=== PATIENT | male | born 1940 | race Caucasian/White ===

== ENCOUNTER 2018-04-15 11:18 | Inpatient (IN) ==
[2018-04-15 12:12] LABS: Hematocrit (blood only) 41.3 % (42-52); Hemoglobin 14.8 g/dL (14.0-18.0); Mean Corpuscular Hgb Conc 35.8 g/dL (32-36); Mean Corpuscular Volume 100.2 fL (80-100); Mean Platelet Volume 8.6 fL (7.4-10.4); Platelet Count 358 K/uL (130-400); RDW Coefficient of Variation 11.9 % (11.5-14.5); RDW Standard Deviation 43.4 fL (36.4-46.3); Red Blood Count 4.12 M/uL (4.7-6.1); White Blood Count 9.43 K/uL (4.8-10.8)
[2018-04-15 12:19] LABS: Appearance Urine Clear (Clear); Bilirubin Urine Negative (Negative); Color Urine Yellow; Glucose Urine UA Negative (Negative); Ketones Urine Negative (Negative); Leukocyte Esterase Urine Negative (Negative); Nitrite Urine Negative (Negative); Protein Urine Negative (Negative); Specific Gravity Urine 1.007 (1.000-1.030); Urobilinogen Urine Negative (Negative); pH Urine 5.5 (4.5-7.5)
--- NOTE | 2018-04-15 12:26 | CT Scan Report ---
CT head/brain wo con CLINICAL HISTORY: 77 years-old Male with weakness. Acute weakness TECHNIQUE: Multiple axial CT images of the head were obtained without contrast. A dose lowering tech nique was utilized adhering to the principles of ALARA. CT DOSE: 601.98 mGy.cm COMPARISON: None. FINDINGS: No acute intracranial hemorrhage, midline shift, intracranial mass, hydrocephalus, territorial ischem ia or abnormal extra-axial collection. Moderate atrophy. Cerebral vascular calcifications are noted. Minimal hypodensities about the white matter are suggestive of chronic microvascular ischemic changes . The calvarium is intact. The paranasal sinuses, mastoid air cells, and middle ear cavities are clear . IMPRESSION: No acute intracranial abnormality. The above report was generated using voice recognition software. It may contain grammatical, syntax o r spelling errors. Electronically signed by: Sergo Payan M.D. 04/15/2018 12:24 PM
[2018-04-15 12:32] LABS: Alanine Aminotransferase 12 U/L (12-78); Albumin Level 2.5 gm/dl (3.4-5.0); Aspartate Aminotransferase 11 U/L (15-37); BUN Creatinine Ratio 7.3 (10-20); Blood Urea Nitrogen 8 mg/dl (7-18); Calcium 8.4 mg/dl (8.5-10.1); Carbon Dioxide 29 mmol/L (21-32); Chloride 89 mmol/L (98-107); Creatinine Clr Calc Pharmacy 55.1 ml/min; Est GFR (Non-African American) 68.1; Glucose 107 mg/dl (70-99); Magnesium 1.4 mg/dl (1.8-2.4); Potassium 3.1 mmol/L (3.5-5.1); Sodium 126 mmol/L (136-145)
--- NOTE | 2018-04-15 12:33 | XRay Report ---
XR chest 1V portable HISTORY: 77 years-old Male weakness acute weakness COMPARISON: None available TECHNIQUE: Portable AP view of the chest FINDINGS: Cardiac silhouette is mildly enlarged. Linear subsegmental left basilar opacities suggest atelectasis /scarring. No pneumothorax, large pleural effusion or overt pulmonary edema. Remote appearing bilateral rib fractures. Degenerative changes of the shoulders and spine. IMPRESSION: 1. Cardiomegaly without acute process. 2. Subsegmental left basilar atelectasis/scarring. The above report was generated using voice recognition software. It may contain grammatical, syntax o r spelling errors. Electronically signed by: Sergo Payan M.D. 04/15/2018 12:32 PM
[2018-04-15 12:39] LABS: Basophils # (auto) 0.03 K/uL (0-0.2); Basophils % (auto) 0.3 %; Eosinophils # (auto) 0.04 K/uL (0-0.5); Eosinophils % (auto) 0.4 %; Immature Granulocytes # (auto) 0.43 K/uL (0.00-0.02); Immature Granulocytes % (auto) 4.6 %; Lymphocytes # (auto) 1.48 K/uL (1.2-3.4); Lymphocytes % (auto) 15.7 %; Monocytes # (auto) 1.53 K/uL (0.11-0.59); Monocytes % (auto) 16.2 %; Neutrophils # (auto) 5.92 K/uL (1.4-6.5); Neutrophils % (auto) 62.8 %
[2018-04-15 12:42] LABS: Albumin Globulin Ratio 0.5 (0.9-2); Alkaline Phosphatase 55 U/L (45-117); Total Protein 7.5 gm/dl (6.4-8.2); Troponin I < 0.015 ng/ml (0-0.045)
[2018-04-15] MEDS ORDERED: POTASSIUM CHLORIDE / WTR 10 MEQ/100 ML PLCT IV ONE (13:19)
[2018-04-15] MEDS ORDERED: SODIUM CHLORIDE 0.9% 1000ML 1,000 ML IV STA (13:19)
--- NOTE | 2018-04-15 14:10 | CT Scan Report ---
ABDOMEN AND PELVIS CT WITHOUT CONTRAST CT DOSE: 348.43 mGy.cm HISTORY: Acute left lower quadrant abdominal pain and tenderness LLQ tenderness, hyponatremia TECHNIQUE: Multiaxial CT images of the abdomen and pelvis were performed without contrast. A dose lo wering technique was utilized adhering to the principles of ALARA. COMPARISON STUDY: None. FINDINGS: Calcified granulomata about the lung bases. Mild subsegmental bibasilar atelectasis/scarring. No pneu matosis or pneumoperitoneum. Imaged inferior cardiac chambers are mildly enlarged. Papillary muscle c alcifications noted about the left ventricle. Layering cholelithiasis noted without CT evidence of acute cholecystitis. Mild gallbladder contractio n. Liver is unremarkable. No focal hepatic mass lesion or intrahepatic biliary ductal dilation. Splee n is unremarkable. Mild generalized pancreatic atrophy. Adrenal glands are unremarkable. Right kidney and ureter are within normal limits. Mild perinephric stranding about the left kidney. 3 .5 cm cyst about the interpolar left kidney demonstrates minimal calcification along its medial porti on. No left-sided renal calculi or hydronephrosis. Mild wall thickening of the bladder. The prostate is upper limits of normal in size. Small fat filled left inguinal hernia. The aorta and IVC are unrem arkable. 1.2 cm fatty attenuating focus involving the proximal third portion of the duodenum suggests lipoma. No small bowel obstruction. There is circumferential wall thickening of the colon with perivesicular stranding extending from the ascending colon through the rectum, greatest about the sigmoid colon wit h trace fluid tracking along the paracolic gutters. Colonic diverticulosis without acute diverticulit is. Surgically absent appendix. Mildly prominent lymph nodes of the mid mesentery measure up to 8 mm, likely reactive. Tiny fat filled pain focal hernia. Degenerative changes noted about the pelvis, spine and hips. Mild convex left curvature of the lumbar spine. Remote appearing Schmorl's node involves the superior endp late L4. Age-indeterminate anterior endplate compression of the T12 and L1 without significant retrop ulsion. IMPRESSION: 1. Circumferential wall thickening of the colon extending from the ascending segment through the rect um with surrounding inflammatory stranding and trace pericolic gutter free fluid is compatible with a n acute nonspecific colitis. 2. No bowel obstruction. 3. Cholelithiasis without CT evidence of acute cholecystitis. 4. Age-indeterminate anterior endplate compression deformities at T12 and L1 without significant retr opulsion. 5. Additional findings as above. Electronically signed by: Sergo Payan M.D. 04/15/2018 2:08 PM
[2018-04-15] MEDS ORDERED: LORazepam 1 MG TAB PO PRN ×2 (15:21→16:57)
[2018-04-15] MEDS ORDERED: POTASSIUM CHLORIDE 20 MEQ TABCR PO ONE (15:30)
--- NOTE | 2018-04-15 15:42 | Emergency Department Note ---
Entered by Waleska Bello acting as a scribe for Alex Cazares MD ED Provider Note CHIEF COMPLAINT: Weakness HISTORY OF PRESENT ILLNESS: The patient is a 77 year old male who presents to the Emergency Room with complaints of constant weakness that started 2 weeks ago. The patient reports he went for a checkup and asked for something for energy. He states he was given vitamin D and then got his blood work done again. The patient states he occasionally has pain in the back of his neck. He reports he has had lower back issues for a while that radiate to his hips. The patient notes he has loss of appetite. He notes his balance if off and has been walking a lot slower. The patient reports he is weak all over. Per significant other: the patient has been confused lately where he forgot to take the trash out last week. The patient states there is changes in his bowel movements where it its mushy and not firm at all. He reports he has history of appendectomy and hypertension. He states he is on blood pressure medicine. The patient reports he had a cataract surgery done for one eye. Pt denies LOC, headache, fevers, chills, diaphoresis, visual changes, chest pain , breathing difficulties, nausea, vomiting, abdominal pain, back pain, melena, hematochezia, urinary symptoms, numbness, lymphadenopathy, rash, or other complaints. REVIEW OF SYSTEMS: See HPI for pertinent positives and negatives. A total of ten systems were reviewed and were otherwise negative. PMHx/PSHx: Rheumatic fever Hypertension BCC in situ of skin Tonsillectomy SOCIAL HISTORY: Patient lives at home. PHYSICAL EXAM: GENERAL: Awake, alert, tired-appearing, in no distress HENT: Normocephalic, atraumatic. Oropharynx unremarkable. EYES: Normal conjunctiva. Sclera non-icteric. NECK: Inspection normal. Non-tender. Supple. No nuchal rigidity. FROM. No masses. RESPIRATORY: Clear to auscultation. No wheezes. No rales. Normal respiratory effort. CARDIAC: Normal rate. Normal rhythm. No murmurs. No rubs. Extremities warm and well perfused. Pulses equal. No JVD. GI: Soft, non-distended. Left lower quadrant tenderness to palpation. No rebound or guarding. No masses. RECTAL: Deferred. MUSCULOSKELETAL: Atraumatic. Chest examination reveals no tenderness. The back is symmetrical on inspection without obvious abnormality. There is no CVA tenderness to palpation. No joint edema. LOWER EXTREMITIES: Calves are equal size bilaterally and non-tender. No edema. No discoloration. NEURO: Normal sensorium. No sensory or motor deficits noted. SKIN: No rash or jaundice noted. EMERGENCY DEPARTMENT COURSE: 1137: Past medical records reviewed. The patient was evaluated in room B2, and a complete history and physical examination were performed. 1322: I reevaluated the patient and updated his on test results. I discussed the treatment plan with him. The patient verbally agreed and understood. 1325: I reviewed the patient's case with Carlos Cates. She will admit the patient. MEDICAL DECISION MAKING: Prior records/ancillary studies reviewed and summarized above. Nursing notes reviewed and agree them. Additional history obtained from family. The patient's history was concerning for generalized weakness and poor appetite. Differential diagnosis: Etiologies such as infection, hypoglycemia, electrolyte abnormalities, cardiac sources, intracerebral event, toxicologic, neurologic, as well as others were entertained. Physical examination: As above. Mild lower quadrant tenderness. On the left per ER treatment provided: IV Lock Normal saline hydration IV potassium On reassessment the patient felt better. Diagnostics interpretation by me: ECG: Negative for ischemia. Left bundle branch block with premature contractions noted. Repeat unchanged. The labs revealed an unremarkable CBC. Chemistry panel revealed significant hyponatremia as well as hypokalemia. Urinalysis unremarkable. Troponin negative. Imaging studies: Head CT was negative. Chest x-ray negative. CT scan of the abdomen pelvis revealed a colitis. Endplate compression fracture is noted of T12 and L1. Patient and family were informed. Consultation: A consultation was placed with the hospitalist. The case was discussed and diagnostics were reviewed. The patient was evaluated in the ER for further treatment. IMPRESSION: Hyponatremia Hypokalemia Weakness Colitis Compression Fracture of T12 and L1 PLAN: Admitted. The scribe's documentation has been prepared under my direction and personally reviewed by me in its entirety. I confirm that the note above accurately reflects all work, treatment, procedures, and medical decision making performed by me. Impression & Plan Hyponatremia, Hypokalemia, Weakness, Colitis, Compression fracture of T12 vertebra, Compression fracture of L1 vertebra Past Med/Surg History Medical History Basal cell carcinoma (BCC) in situ of skin Hypertension Rheumatic fever HX OF WITH MURMUR; NO SPEED BELT SANDER TENDER Surgical History H/O Moh's micrographic surgery for skin cancer X2 History of appendectomy History of colonoscopy History of tonsillectomy and adenoidectomy History of tooth extraction WISDOM TOOTH Family History Other Family history non-contributory Social History Current Living Situation: Spouse Other Information That Helps Us Care for You: No Feels Safe at Home: Yes Safety Concerns: Feels Safe At This Time Smoking Status: Never smoker Do You Dip or Chew Tobacco: No Second Hand Exposure: No Tobacco Cessation Education Requested by Patient: No Hx Alcohol Use: Yes Alcohol type: beer Alcohol Intake Frequency: 3 or more drinks per day Hx Substance Use: No Beliefs That Will Affect Care: None Preferred Language: Croatian Communication Ability: Effective Quality Assurance Inspector Required: No Results & Data Vital Signs Vital Signs - 24 hr 04/15/18 11:20 04/15/18 11:33 04/15/18 12:04 Temperature 36.7 C Temperature Source Oral Sepsis Recent Fever Within 48 Hours No Sepsis New/Unexplained Change in Mental Status No Sepsis Action Taken by Nursing No Action Required Pulse Rate - Lying 87 Pulse Rate - Sitting 95 H Pulse Rate - Standing 111 H Pulse Rate 87 Pulse Rate [Right Finger] Respiratory Rate 16 Respiratory Effort / Characteristics Respiratory Depth Respiratory Pattern Blood Pressure - Lying 116/77 Blood Pressure - Sitting 98/64 L Blood Pressure- Standing 97/61 L Blood Pressure 101/63 Blood Pressure [Left Arm] Blood Pressure Mean 75 Blood Pressure Mean [Left Arm] Blood Pressure Position [Left Arm] Pulse Oximetry 96 94 Oxygen Delivery Method Room Air Room Air 04/15/18 12:26 04/15/18 13:56 04/15/18 14:24 Temperature Temperature Source Sepsis Recent Fever Within 48 Hours Sepsis New/Unexplained Change in Mental Status Sepsis Action Taken by Nursing Pulse Rate - Lying Pulse Rate - Sitting Pulse Rate - Standing Pulse Rate 99 H Pulse Rate [Right Finger] 110 H 101 H Respiratory Rate 16 20 20 Respiratory Effort / Characteristics Non-Labored Spontaneous Respiratory Depth Normal Respiratory Pattern Regular Blood Pressure - Lying Blood Pressure - Sitting Blood Pressure- Standing Blood Pressure 117/54 L Blood Pressure [Left Arm] 113/63 110/74 Blood Pressure Mean Blood Pressure Mean [Left Arm] 79 86 Blood Pressure Position [Left Arm] Sitting Pulse Oximetry 94 98 98 Oxygen Delivery Method Room Air Room Air Room Air 04/15/18 15:04 Temperature 37.3 C Temperature Source Oral Sepsis Recent Fever Within 48 Hours Sepsis New/Unexplained Change in Mental Status Sepsis Action Taken by Nursing Pulse Rate - Lying Pulse Rate - Sitting Pulse Rate - Standing Pulse Rate Pulse Rate [Right Finger] 92 H Respiratory Rate Respiratory Effort / Characteristics Respiratory Depth Respiratory Pattern Blood Pressure - Lying Blood Pressure - Sitting Blood Pressure- Standing Blood Pressure Blood Pressure [Left Arm] 133/76 Blood Pressure Mean Blood Pressure Mean [Left Arm] 95 Blood Pressure Position [Left Arm] Pulse Oximetry 98 Oxygen Delivery Method Home Medications Current Medication List: was personally reviewed by me Laboratory Data Attestation: I reviewed the patient's lab results. Result diagrams: 04/15/18 11:59 04/15/18 11:59 Lab Results 04/15/18 04/15/18 04/15/18 Range/Units 11:59 11:59 11:59 WBC 9.43 (4.8-10.8) K/uL RBC 4.12 L (4.7-6.1) M/uL Hgb 14.8 (14.0-18.0) g/dL Hct 41.3 L (42-52) % MCV 100.2 H (80-100) fL MCH 35.9 H (25-34) pg MCHC 35.8 (32-36) g/dL RDW Std Deviation 43.4 (36.4-46.3) fL RDW Coeff of Cheryl 11.9 (11.5-14.5) % Plt Count 358 (130-400) K/uL MPV 8.6 (7.4-10.4) fL Immature Gran % (Auto) 4.6 % Neut % (Auto) 62.8 % Lymph % (Auto) 15.7 % Wilkin % (Auto) 16.2 % Eos % (Auto) 0.4 % Baso % (Auto) 0.3 % Immature Gran # (Auto) 0.43 H (0.00-0.02) K/uL Neut # (Auto) 5.92 (1.4-6.5) K/uL Lymph # (Auto) 1.48 (1.2-3.4) K/uL Wilkin # (Auto) 1.53 H (0.11-0.59) K/uL Eos # (Auto) 0.04 (0-0.5) K/uL Baso # (Auto) 0.03 (0-0.2) K/uL Sodium 126 L (136-145) mmol/L Potassium 3.1 L (3.5-5.1) mmol/L Chloride 89 L (98-107) mmol/L Carbon Dioxide 29 (21-32) mmol/L Anion Gap 8.0 (3-11) BUN 8 (7-18) mg/dl Creatinine 1.05 (0.6-1.4) mg/dl Est Cr Clr Drug Dosing 55.1 ml/min Est GFR ( Amer) 79.0 Est GFR (Non-Af Amer) 68.1 BUN/Creatinine Ratio 7.3 L (10-20) Glucose 107 H (70-99) mg/dl Osmolality 261 L (280-300) mOsm/kg Calcium 8.4 L (8.5-10.1) mg/dl Magnesium 1.4 L (1.8-2.4) mg/dl Total Bilirubin 1.0 (0.1-1) mg/dl AST 11 L (15-37) U/L ALT 12 (12-78) U/L Alkaline Phosphatase 55 (45-117) U/L Troponin I < 0.015 (0-0.045) ng/ml Total Protein 7.5 (6.4-8.2) gm/dl Albumin 2.5 L (3.4-5.0) gm/dl Globulin 5.0 H (2.5-4.0) gm/dl Albumin/Globulin Ratio 0.5 L (0.9-2) TSH 2.060 (0.300-4.500) uIu/ml Urine Color Urine Appearance (Clear) Urine pH (4.5-7.5) Ur Specific Anderson (1.000-1.030) Urine Protein (Negative) Urine Glucose (UA) (Negative) Urine Ketones (Negative) Urine Blood (Negative) Urine Nitrite (Negative) Urine Bilirubin (Negative) Urine Urobilinogen (Negative) Ur Leukocyte Esterase (Negative) Urine Osmolality (500-800) mOsm/kg Urine Sodium mmol/L Urine Potassium meq/L Urine Chloride mEq/L 04/15/18 04/15/18 04/15/18 Range/Units 12:10 12:10 12:10 WBC (4.8-10.8) K/uL RBC (4.7-6.1) M/uL Hgb (14.0-18.0) g/dL Hct (42-52) % MCV (80-100) fL MCH (25-34) pg MCHC (32-36) g/dL RDW Std Deviation (36.4-46.3) fL RDW Coeff of Cheryl (11.5-14.5) % Plt Count (130-400) K/uL MPV (7.4-10.4) fL Immature Gran % (Auto) % Neut % (Auto) % Lymph % (Auto) % Wilkin % (Auto) % Eos % (Auto) % Baso % (Auto) % Immature Gran # (Auto) (0.00-0.02) K/uL Neut # (Auto) (1.4-6.5) K/uL Lymph # (Auto) (1.2-3.4) K/uL Wilkin # (Auto) (0.11-0.59) K/uL Eos # (Auto) (0-0.5) K/uL Baso # (Auto) (0-0.2) K/uL Sodium (136-145) mmol/L Potassium (3.5-5.1) mmol/L Chloride (98-107) mmol/L Carbon Dioxide (21-32) mmol/L Anion Gap (3-11) BUN (7-18) mg/dl Creatinine (0.6-1.4) mg/dl Est Cr Clr Drug Dosing ml/min Est GFR ( Amer) Est GFR (Non-Af Amer) BUN/Creatinine Ratio (10-20) Glucose (70-99) mg/dl Osmolality (280-300) mOsm/kg Calcium (8.5-10.1) mg/dl Magnesium (1.8-2.4) mg/dl Total Bilirubin (0.1-1) mg/dl AST (15-37) U/L ALT (12-78) U/L Alkaline Phosphatase (45-117) U/L Troponin I (0-0.045) ng/ml Total Protein (6.4-8.2) gm/dl Albumin (3.4-5.0) gm/dl Globulin (2.5-4.0) gm/dl Albumin/Globulin Ratio (0.9-2) TSH (0.300-4.500) uIu/ml Urine Color Yellow Urine Appearance Clear (Clear) Urine pH 5.5 (4.5-7.5) Ur Specific Anderson 1.007 (1.000-1.030) Urine Protein Negative (Negative) Urine Glucose (UA) Negative (Negative) Urine Ketones Negative (Negative) Urine Blood Negative (Negative) Urine Nitrite Negative (Negative) Urine Bilirubin Negative (Negative) Urine Urobilinogen Negative (Negative) Ur Leukocyte Esterase Negative (Negative) Urine Osmolality 186 L (500-800) mOsm/kg Urine Sodium 25 mmol/L Urine Potassium 14.2 meq/L Urine Chloride 42 mEq/L Administered Medications Sodium Chloride (Nss 1000ml) 1,000 mls @ 125 mls/hr IV .Q8H STA Stop: 04/15/18 21:18 Last Admin: 04/15/18 13:30 Dose: 125 mls/hr Discontinued Medications Potassium Chloride (K [place] / Wtr) 10 meq in 100 mls @ 100 mls/hr IV ONE ONE Stop: 04/15/18 14:18 Last Admin: 04/15/18 13:30 Dose: 100 mls/hr Imaging Data Radiologist's Impression: Radiology results as stated below per my review and the radiologist's interpretation: CT head/brain wo con CLINICAL HISTORY: 77 years-old Male with weakness. Acute weakness TECHNIQUE: Multiple axial CT images of the head were obtained without contrast. A dose lowering technique was utilized adhering to the principles of ALARA. CT DOSE: 601.98 mGy.cm COMPARISON: None. FINDINGS: No acute intracranial hemorrhage, midline shift, intracranial mass, hydrocephalus, territorial ischemia or abnormal extra-axial collection. Moderate atrophy. Cerebral vascular calcifications are noted. Minimal hypodensities about the white matter are suggestive of chronic microvascular ischemic changes. The calvarium is intact. The paranasal sinuses, mastoid air cells, and middle ear cavities are clear. IMPRESSION: No acute intracranial abnormality. The above report was generated using voice recognition software. It may contain grammatical, syntax or spelling errors. Electronically signed by: Sergo Payan M.D. 04/15/2018 12:24 PM XR chest 1V portable HISTORY: 77 years-old Male weakness acute weakness COMPARISON: None available TECHNIQUE: Portable AP view of the chest FINDINGS: Cardiac silhouette is mildly enlarged. Linear subsegmental left basilar opacities suggest atelectasis/scarring. No pneumothorax, large pleural effusion or overt pulmonary edema. Remote appearing bilateral rib fractures. Degenerative changes of the shoulders and spine. IMPRESSION: 1. Cardiomegaly without acute process. 2. Subsegmental left basilar atelectasis/scarring. The above report was generated using voice recognition software. It may contain grammatical, syntax or spelling errors. Electronically signed by: Sergo Payan M.D. 04/15/2018 12:32 PM ECG Data Attestation: I personally reviewed and interpreted this ECG as follows: Indication: weakness Rate (beats per minute): 81 Rhythm: sinus rhythm ( with Premature supraventricular complexes) Findings: + LBBB and + left axis deviation; no PVC Comparison ECG Date: from (04/15/18 REPEAT) Change: no significant change (Sinus rhythm, 72 bpm, LBBB, premature supraventricular complexes) Blood Pressure Blood Pressure Findings: Normal blood pressure Blood Pressure Disposition: did not require urgent referral Discharge Plan Visit Data *Final* Discharge Date/Time: 04/15/18 14:24 Chief Complaint: Weakness Stated Complaint: WEAKNESS, DISORIENTED ED Provider: Alex Cazares Discharge Problem: Hyponatremia, Hypokalemia, Weakness, Colitis, Compression fracture of T12 vertebra, Compression fracture of L1 vertebra Patient Disposition: Admitted As Inpatient Discharge Instructions Interventions: ED Discharge Assessment Last Done: 04/15/18 14:24 The scribe's documentation has been prepared under my direction and personally reviewed by me in its entirety. I confirm that the note above accurately reflects all work, treatment, procedures, and medical decision making performed by me.
[2018-04-15 16:13] LABS: INR 1.2 (0.9-1.1); Partial Thromboplastin Ratio 1.1; Partial Thromboplastin Time 28.6 Seconds (21.0-31.0); Prothrombin Time 11.8 Seconds (9.0-12.0)
--- NOTE | 2018-04-15 16:23 | History & Physical Report ---
Date of Service April 15, 2018 Assessment & Plan (1) Hyponatremia: -Admit to [facility] with telemetry -Patient presenting from home with reports of 2 weeks of generalized weakness, lethargy, diarrhea -In the ED, CT ABD/pelvis showing a nonspecific colitis. Labs demonstrated Na+ 126 with associated hypokalemia and hypomagnesemia -Likely hypovolemic hyponatremia secondary to recent initiation of hydrochlorothiazide in combination with diarrhea and chronic alcohol use -IVF (NSS at 100ml/hr), serial BMPs to monitor for overcorrection of sodium (2) Colitis: -Noted on CT ABD/pelvis -will start p.o. Cipro -Stool for C. difficile and culture -Noted colonoscopy 08/2017-had polyps resected which were benign on biopsy (3) Hypokalemia: (4) Hypomagnesemia: -Likely secondary to GI loss with diarrhea -Replace, monitor electrolytes (5) Alcohol use: -Patient reports drinking 7 beers/day -No history of withdrawal in the past -Monitor patient closely for signs of withdrawal -Start multivitamin, folic acid, thiamine (6) Hypertension: -BP controlled -Holding HCTZ secondary to hyponatremia -Continue metoprolol, will hold lisinopril for now (7) DVT prophylaxis: -SQ Lovenox History of Present Illness Chief Complaint: Weakness Primary Care Provider: Chevy Bhatti MD 77-year-old male who presents to the ED with generalized weakness. Patient reports symptoms of been going on for the past 2 weeks. Patient reports he is typically very active however he has been sleeping up to 20 hours a day. He reports some intermittent lightheadedness and dizziness but denies any syncopal events. He reports a very poor appetite over the past couple of weeks as well however denies abdominal pain, nausea, vomiting. He reports diarrhea for the past 2 weeks as well. No bright red bleeding per rectum or dark tarry stools. He denies fevers and chills. No chest pain or shortness of breath. He denies any urinary symptoms. Of note, patient reports he was [facility] on [facility] ([facility] to determine [facility] medicine was hydrochlorothiazide 12.5 mg daily). In the ED, CT ABD/pelvis is showing an acute nonspecific colitis. Labs show Na+ 126, K+ 3.1, Mg +1.4. He was given IVF and 1 potassium rider. Allergies Allergy/AdvReac Type Severity Reaction Status Date / Time No Known Allergies Allergy Verified 04/15/18 12:31 Home Medications Home Medications Medication Instructions Recorded Confirmed Type cyanocobalamin (vitamin B-12) 1,000 mcg PO QAM 01/20/18 04/15/18 History [Vitamin B-12] metoprolol tartrate 25 mg PO BID 01/20/18 04/15/18 History saw palmetto 1,200 mg PO QAM 01/20/18 04/15/18 History vit C-vit [id number]-om-3 1 cap PO QAM 01/20/18 04/15/18 History [Ocuvite] cholecalciferol (vitamin D3) 1,000 unit PO QAM 04/15/18 04/15/18 History [Vitamin D3] hydrochlorothiazide 12.5 mg PO DAILY 04/15/18 04/15/18 History lisinopril 5 mg PO DAILY 04/15/18 04/15/18 History Past Med/Surg History Medical History Hypertension (Chronic) Basal cell carcinoma (BCC) in situ of skin (Inactive) Hypertension (Inactive) Rheumatic fever (Inactive) HX OF WITH MURMUR; 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 Surgical History S/P tonsillectomy and adenoidectomy (Chronic) History of appendectomy (Chronic) H/O Moh's micrographic surgery for skin cancer (Inactive) X2 History of appendectomy (Inactive) History of colonoscopy (Inactive) History of tonsillectomy and adenoidectomy (Inactive) History of tooth extraction (Inactive) WISDOM TOOTH Family History Other Family history non-contributory Social History Current Living Situation: Spouse Other Information That Helps Us Care for You: No Feels Safe at Home: Yes Safety Concerns: Feels Safe At This Time Smoking Status: Never smoker Do You Dip or Chew Tobacco: No Second Hand Exposure: No Tobacco Cessation Education Requested by Patient: No Hx Alcohol Use: Yes Alcohol type: beer Alcohol Intake Frequency: 3 or more drinks per day Alcohol Intake Frequency Comment: 7 beers/day Hx Substance Use: No Beliefs That Will Affect Care: None Preferred Language: Serbian Communication Ability: Effective Satin Finisher Required: No Review of Systems ROS per HPI, all other systems reviewed and negative Physical Exam 2 Vital Signs (Past 24 Hours): Last Vital Signs Temp 37.3 C 04/15/18 15:04 Pulse 92 H 04/15/18 15:04 Resp 20 04/15/18 14:24 BP 133/76 04/15/18 15:04 Pulse Ox 98 04/15/18 15:04 Constitutional: WD/WN, vitals as above Eyes: PERRL, conjunctivae normal, anicteric sclerae ENMT: external ear and nose normal, oropharynx normal Respiratory: normal respiratory effort, lungs clear to auscultation Cardiovascular: Rate/Rhythm: regular rate and regular rhythm Vessels: normal peripheral pulses Extremities: no edema Gastrointestinal (Abdomen): normal bowel sounds, soft, nontender, no hepatosplenomegaly Musculoskeletal: no cyanosis or clubbing, extremities motor strength 5/5 Skin: no rashes, warm and dry Neurologic: PERRL, EOMI, accommodation nl, no face palsy, no dysarthria Psychiatric: A+Ox3, euthymic affect Results & Data Laboratory Results Laboratory Last Values WBC 9.43 K/uL (4.8-10.8) 04/15/18 11:59 RBC 4.12 M/uL (4.7-6.1) L 04/15/18 11:59 Hgb 14.8 g/dL (14.0-18.0) 04/15/18 11:59 Hct 41.3 % (42-52) L 04/15/18 11:59 MCV 100.2 fL (80-100) H 04/15/18 11:59 MCH 35.9 pg (25-34) H 04/15/18 11:59 MCHC 35.8 g/dL (32-36) 04/15/18 11:59 RDW Std Deviation 43.4 fL (36.4-46.3) 04/15/18 11:59 RDW Coeff of Cheryl 11.9 % (11.5-14.5) 04/15/18 11:59 Plt Count 358 K/uL (130-400) 04/15/18 11:59 MPV 8.6 fL (7.4-10.4) 04/15/18 11:59 Immature Gran % (Auto) 4.6 % 04/15/18 11:59 Neut % (Auto) 62.8 % 04/15/18 11:59 Lymph % (Auto) 15.7 % 04/15/18 11:59 Colbert % (Auto) 16.2 % 04/15/18 11:59 Eos % (Auto) 0.4 % 04/15/18 11:59 Baso % (Auto) 0.3 % 04/15/18 11:59 Immature Gran # (Auto) 0.43 K/uL (0.00-0.02) H 04/15/18 11:59 Neut # (Auto) 5.92 K/uL (1.4-6.5) 04/15/18 11:59 Lymph # (Auto) 1.48 K/uL (1.2-3.4) 04/15/18 11:59 Colbert # (Auto) 1.53 K/uL (0.11-0.59) H 04/15/18 11:59 Eos # (Auto) 0.04 K/uL (0-0.5) 04/15/18 11:59 Baso # (Auto) 0.03 K/uL (0-0.2) 04/15/18 11:59 PT 11.8 Seconds (9.0-12.0) 04/15/18 11:59 INR 1.2 (0.9-1.1) H 04/15/18 11:59 APTT 28.6 Seconds (21.0-31.0) 04/15/18 11:59 PTT Ratio 1.1 04/15/18 11:59 Sodium 126 mmol/L (136-145) L 04/15/18 11:59 Potassium 3.1 mmol/L (3.5-5.1) L 04/15/18 11:59 Chloride 89 mmol/L (98-107) L 04/15/18 11:59 Carbon Dioxide 29 mmol/L (21-32) 04/15/18 11:59 Anion Gap 8.0 (3-11) 04/15/18 11:59 BUN 8 mg/dl (7-18) 04/15/18 11:59 Creatinine 1.05 mg/dl (0.6-1.4) 04/15/18 11:59 Est Cr Clr Drug Dosing 55.1 ml/min 04/15/18 11:59 Est GFR ( Amer) 79.0 04/15/18 11:59 Est GFR (Non-Af Amer) 68.1 04/15/18 11:59 BUN/Creatinine Ratio 7.3 (10-20) L 04/15/18 11:59 Glucose 107 mg/dl (70-99) H 04/15/18 11:59 Osmolality 261 mOsm/kg (280-300) L 04/15/18 11:59 Calcium 8.4 mg/dl (8.5-10.1) L 04/15/18 11:59 Magnesium 1.4 mg/dl (1.8-2.4) L 04/15/18 11:59 Total Bilirubin 1.0 mg/dl (0.1-1) 04/15/18 11:59 AST 11 U/L (15-37) L 04/15/18 11:59 ALT 12 U/L (12-78) 04/15/18 11:59 Alkaline Phosphatase 55 U/L (45-117) 04/15/18 11:59 Troponin I < 0.015 ng/ml (0-0.045) 04/15/18 11:59 Total Protein 7.5 gm/dl (6.4-8.2) 04/15/18 11:59 Albumin 2.5 gm/dl (3.4-5.0) L 04/15/18 11:59 Globulin 5.0 gm/dl (2.5-4.0) H 04/15/18 11:59 Albumin/Globulin Ratio 0.5 (0.9-2) L 04/15/18 11:59 TSH 2.060 uIu/ml (0.300-4.500) 04/15/18 11:59 Urine Color Yellow 04/15/18 12:10 Urine Appearance Clear (Clear) 04/15/18 12:10 Urine pH 5.5 (4.5-7.5) 04/15/18 12:10 Ur Specific Bailey 1.007 (1.000-1.030) 04/15/18 12:10 Urine Protein Negative (Negative) 04/15/18 12:10 Urine Glucose (UA) Negative (Negative) 04/15/18 12:10 Urine Ketones Negative (Negative) 04/15/18 12:10 Urine Blood Negative (Negative) 04/15/18 12:10 Urine Nitrite Negative (Negative) 04/15/18 12:10 Urine Bilirubin Negative (Negative) 04/15/18 12:10 Urine Urobilinogen Negative (Negative) 04/15/18 12:10 Ur Leukocyte Esterase Negative (Negative) 04/15/18 12:10 Urine Osmolality 186 mOsm/kg (500-800) L 04/15/18 12:10 Urine Sodium 25 mmol/L 04/15/18 12:10 Urine Potassium 14.2 meq/L 04/15/18 12:10 Urine Chloride 42 mEq/L 04/15/18 12:10 Diagnostic Findings CXR IMPRESSION: 1. Cardiomegaly without acute process. 2. Subsegmental left basilar atelectasis/scarring. HEAD CT IMPRESSION: No acute intracranial abnormality. CT ABD/PELVIS IMPRESSION: 1. Circumferential wall thickening of the colon extending from the ascending segment through the rectum with surrounding inflammatory stranding and trace pericolic gutter free fluid is compatible with an acute nonspecific colitis. 2. No bowel obstruction. 3. Cholelithiasis without CT evidence of acute cholecystitis. 4. Age-indeterminate anterior endplate compression deformities at T12 and L1 without significant retropulsion. 5. Additional findings as above. Code Status & VTE Plan VTE Prophylaxis Plan VTE Prophylaxis will be ordered: Yes Supervising Physician Co-Signing Physician Notes Attending Addendum: care coordinated with LETY Milian please refer to her notes for full details, I agree with her notes patient seen and examined, records reviewed by myself as well on exam, patient resting in bed, watching TV, comfortable States he just has no energy Noted loose bowel movement medical floor, watery, nonbloody Has some occasional cramping in the lower quadrants Denies chest pain, palpitations, dizziness, shortness of breath, headache Last drink was yesterday Reports drinking 6 beers a day Denies tremors, anxiety, sweats, hallucinations no other symptoms VS noted and reviewed oriented x3, not in distress, speaks in sentences with no effort nor accessory muscle use normal rate, regular rhythm, no murmurs clear breath sounds bilaterally non distended, soft, nontender no bipedal edema, erythema, warmth no neuro deficits WBC 9.4 Hg [address] abdomen and pelvis: Acute colitis ASSESSMENT AND PLAN Hyponatremia, hypervolemic From diarrhea of 2 weeks, concomitant use of HCTZ, poor oral intake --IV NSS Check sodium at 6 p.m. --Start Cipro for diarrhea HCTZ Alcoholism Alcohol withdrawal protocol -including gabapentin Monitor in telemetry other diagnoses and plan of care as per LETY Milian's notes Inocente Prater MD
[2018-04-15] MEDS: MAGNESIUM SULFATE / D5W 1 GM/100 ML BAG IV SCH ×2 (16:41→18:04)
[2018-04-15] MEDS: CIPROFLOXACIN 500 MG TAB PO SCH ×2 (16:42→21:01)
[2018-04-15] MEDS: FOLIC ACID 1 MG TAB PO SCH (16:42)
[2018-04-15] MEDS: MULTIVITAMIN TAB PO SCH (16:43)
[2018-04-15] MEDS: THIAMINE HCL 100 MG TAB PO SCH (16:44)
[2018-04-15] MEDS: SODIUM CHLORIDE 0.9% 1000ML 1,000 ML IV SCH (16:46)
[2018-04-15] MEDS ORDERED: GABAPENTIN 1200MG ALCOHOL WITHDRAWAL LOAD PO STA (16:57)
[2018-04-15] MEDS ORDERED: GABAPENTIN 600 MG TAB PO SCH (18:00)
[2018-04-15] MEDS ORDERED: Heparin IV Low Dose *NO* Bolus ONE (18:18)
[2018-04-15] MEDS ORDERED: METOPROLOL TARTRATE 1 MG/ML VIAL IV PRN (18:21)
[2018-04-15] MEDS: METOPROLOL TARTRATE 25 MG TAB PO SCH (18:21)
[2018-04-15 18:27] LABS: BUN Creatinine Ratio 8.7 (10-20); Calcium 7.9 mg/dl (8.5-10.1); Creatinine Clr Calc Pharmacy 57.8 ml/min; Est GFR (African American) 83.8; Est GFR (Non-African American) 72.3; Potassium 2.9 mmol/L (3.5-5.1)
[2018-04-15] MEDS ORDERED: POTASSIUM CHLORIDE 20 MEQ TABCR PO STA (18:29)
[2018-04-15] MEDS: HEPARIN LOW DOSE DEXTROSE 25,000 UNITS/500 ML IV SCH (19:19)
[2018-04-15] MEDS: POTASSIUM CHLORIDE / WTR 10 MEQ/100 ML PLCT IV SCH ×2 (19:21→21:01)
[2018-04-15] MEDS ORDERED: ENOXAPARIN INJ 40 MG/0.4 ML SYR SQ SCH (21:00)
[2018-04-16] MEDS: GABAPENTIN 600 MG TAB PO SCH ×4 (00:08→20:20)
[2018-04-16 00:41] LABS: BUN Creatinine Ratio 8.2 (10-20); Creatinine Clr Calc Pharmacy 57.3 ml/min; Est GFR (African American) 82.8; Est GFR (Non-African American) 71.4; Magnesium 1.8 mg/dl (1.8-2.4); Potassium 3.4 mmol/L (3.5-5.1)
[2018-04-16 01:51] LABS: Partial Thromboplastin Ratio 1.6; Partial Thromboplastin Time 41.7 Seconds (21.0-31.0)
[2018-04-16] MEDS ORDERED: HEPARIN IV BOLUS 3,000 UNITS in SYRINGE 0 ML IV ONE (02:30)
[2018-04-16] MEDS ORDERED: POTASSIUM CHLORIDE 20 MEQ TABCR PO STA (04:09)
[2018-04-16] MEDS: SODIUM CHLORIDE 0.9% 1000ML 1,000 ML IV SCH ×2 (05:44→16:13)
[2018-04-16 08:39] LABS: Hematocrit (blood only) 39.3 % (42-52); Hemoglobin 13.8 g/dL (14.0-18.0); Mean Corpuscular Hgb Conc 35.1 g/dL (32-36); Mean Platelet Volume 8.4 fL (7.4-10.4); Platelet Count 362 K/uL (130-400); RDW Coefficient of Variation 11.9 % (11.5-14.5); RDW Standard Deviation 43.8 fL (36.4-46.3); Red Blood Count 3.89 M/uL (4.7-6.1); White Blood Count 10.04 K/uL (4.8-10.8)
[2018-04-16] MEDS ORDERED: SILVER SULFADIAZINE 1% CR 50 GM JAR EXT ONE (08:42)
[2018-04-16 08:54] LABS: Partial Thromboplastin Ratio 1.5
[2018-04-16 09:09] LABS: Calcium 7.7 mg/dl (8.5-10.1); Est GFR (African American) 85.8; Est GFR (Non-African American) 74.1; Magnesium 1.8 mg/dl (1.8-2.4); Potassium 3.2 mmol/L (3.5-5.1)
--- NOTE | 2018-04-16 09:47 | Cardiology Consultation ---
Date of Consultation April 16, 2018 Assessment & Plan (1) Paroxysmal atrial fibrillation: Patient presents with fatigue, lethargy and asymptomatic paroxysmal atrial fibrillation. Patient unaware of any palpitations or cardiac symptoms at this time. Duration of atrial fibrillation unknown, however, I suspect related to volume depletion, electrolyte derangement, and chronic alcohol consumption. Mild left atrial enlargement with otherwise no significant structural heart disease per resting 2D transthoracic echocardiogram. I have ordered Hemoccult stool. Serum hemoglobin within normal limits without history of GI blood loss. Continue intravenous heparin at this time. Continue metoprolol 25 mg twice daily. I will not titrate at this time due to borderline hypotension. (2) LBBB (left bundle branch block): Monitor telemetry. Preserved LV systolic function. Outpatient ischemic evaluation. (3) Colitis: Consider gastroenterology consultation. (4) Alcohol use: (5) Hypokalemia: Replace as indicated. (6) Hyponatremia: Continue intravenous hydration with normal saline. Repeat basic metabolic panel daily. (7) Hypertension: Borderline resting hypotension on admission. Continue beta-mulugeta as tolerated. History of Present Illness Reason for Consultation: Paroxysmal atrial fibrillation Requesting Physician: Inocente Prater MD Attending Physician: Inocente Prater MD History of Present Illness 77-year-old patient admitted with weakness and fatigue. Reports loose stools which were yellow colored for several days. Notes poor p.o. intake. Patient found to be atrial fibrillation with intermittent rapid ventricular response. Carries history of hypertension. Denies personal history of coronary disease, congestive heart failure, diabetes, cerebrovascular accident, rheumatic fever as a child, or peripheral vascular disease. Denies any black or tarry stools. No nausea, vomiting, or hematemesis. Currently resting comfortably. Treated with intravenous beta-mulugeta and heparin overnight. Electrolyte derangement including hyponatremia and hypo-kalemia noted on admission. Resting 2D transthoracic echocardiogram demonstrates normal LV systolic function with abnormal septal motion consistent with left bundle branch block. No significant valvular pathology. Patient admits to moderate daily alcohol intake , consuming 3 or more alcoholic beverages daily. Allergies Allergy/AdvReac Type Severity Reaction Status Date / Time No Known Allergies Allergy Verified 04/15/18 12:31 Home Medications Home Medications Medication Instructions Recorded Confirmed Type cyanocobalamin (vitamin B-12) 1,000 mcg PO QAM 01/20/18 04/15/18 History [Vitamin B-12] metoprolol tartrate 25 mg PO BID 01/20/18 04/15/18 History saw palmetto 1,200 mg PO QAM 01/20/18 04/15/18 History vit C-vit [id number]-sbg-om-3 1 cap PO QAM 01/20/18 04/15/18 History [Ocuvite] cholecalciferol (vitamin D3) 1,000 unit PO QAM 04/15/18 04/15/18 History [Vitamin D3] hydrochlorothiazide 12.5 mg PO DAILY 04/15/18 04/15/18 History lisinopril 5 mg PO DAILY 04/15/18 04/15/18 History Patient History Medical History Hypertension (Chronic) A-fib Anemia Basal cell carcinoma (BCC) in situ of skin (Inactive) Hypertension (Inactive) Rheumatic fever (Inactive) HX OF WITH MURMUR; 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 Surgical History S/P tonsillectomy and adenoidectomy (Chronic) History of appendectomy (Chronic) H/O Moh's micrographic surgery for skin cancer (Inactive) X2 History of appendectomy (Inactive) History of colonoscopy (Inactive) History of tonsillectomy and adenoidectomy (Inactive) History of tooth extraction (Inactive) WISDOM TOOTH Family History Other Family history non-contributory Social History marital status: Current Living Situation: Spouse Other Information That Helps Us Care for You: No Feels Safe at Home: Yes Safety Concerns: Feels Safe At This Time Smoking Status: Never smoker Do You Dip or Chew Tobacco: No Hx Alcohol Use: Yes Alcohol type: beer Alcohol Intake Frequency: 3 or more drinks per day Alcohol Intake Frequency Comment: 7 beers/day Hx Substance Use: No Beliefs That Will Affect Care: None Communication Ability: Effective Review of Systems Pertinent positives noted per HPI, comprehensive 10 system review is otherwise negative. Physical Exam 2 Vital Signs (Past 24 Hours): Last Vital Signs Temp 36.8 C 04/16/18 07:41 Pulse 74 04/16/18 07:41 Resp 16 04/16/18 07:41 BP 96/60 L 04/16/18 07:41 Pulse Ox 95 04/16/18 07:41 Physical Exam: General: NAD, AAO x3, well nourished. HEENT: Normocephalic. Atraumatic. Conjunctiva pink, no scleral icterus. Neck: No carotid bruits, the carotid upstrokes are brisk. No JVD. No HJR Heart: Regular normal S-1 and S-2 no S-3 or S-4 gallop. No murmurs or rub appreciated. PMI is not displaced. No RV heave. Lungs: Clear bilateral without rales , rhonchi, or wheeze. Abdomen: Mild distention, nontender, normal bowel sounds. No masses or organomegaly. No abdominal bruits. Extremities: No clubbing, cyanosis, or edema. Pulses: radial= 2/4, Dorsalis pedis =2/4, posterior tibial=2/4. Neuro: Cranial nerves grossly intact. No focal motor deficit.
[2018-04-16] MEDS: CIPROFLOXACIN 500 MG TAB PO SCH ×2 (09:58→20:19)
[2018-04-16] MEDS: THIAMINE HCL 100 MG TAB PO SCH (09:58)
[2018-04-16] MEDS: MULTIVITAMIN TAB PO SCH (09:58)
[2018-04-16] MEDS: CEROVITE ADV FORMULA TAB PO SCH (09:59)
[2018-04-16] MEDS: CYANOCOBALAMIN 500 MCG TABLET (VITAMIN B-12) PO SCH (09:59)
[2018-04-16] MEDS: FOLIC ACID 1 MG TAB PO SCH (10:00)
[2018-04-16] MEDS: METOPROLOL TARTRATE 25 MG TAB PO SCH ×2 (10:00→20:17)
[2018-04-16] MEDS: CHOLECALCIFEROL 1,000 UNITS TAB PO SCH (10:01)
[2018-04-16] MEDS ORDERED: Heparin IV Low Dose *NO* Bolus ONE (10:14)
[2018-04-16] MEDS ORDERED: HEPARIN IV BOLUS 4,500 UNITS in SYRINGE 0 ML IV ONE (10:30)
[2018-04-16] MEDS: POTASSIUM CHLORIDE 10 MEQ TABCR PO SCH (11:27)
--- NOTE | 2018-04-16 15:58 | Hospitalist Progress Note ---
Date of Service April 16, 2018 Assessment & Plan (1) Hyponatremia: -Admit to [facility] with telemetry -Patient presenting from home with reports of 2 weeks of generalized weakness, lethargy, diarrhea -In the ED, CT ABD/pelvis showing a nonspecific colitis. Labs demonstrated Na+ 126 with associated hypokalemia and hypomagnesemia -Likely hypovolemic hyponatremia secondary to recent initiation of hydrochlorothiazide in combination with diarrhea and chronic alcohol use -IVF (NSS at 100ml/hr), serial BMPs to monitor for overcorrection of sodium 04/16/2018 Sodium is slightly increased to 128 from 126 Continue NSS Check PRP at 6 PM tonight (2) Colitis: -Noted on CT ABD/pelvis -will start p.o. Cipro -Stool for C. difficile and culture -Noted colonoscopy 08/2017-had polyps resected which were benign on biopsy 04/16/2018 The area seems to be improving Stool cultures pending C. difficile negative Continue ciprofloxacin twice a day Start loperamide as needed for loose stools (3) Hypokalemia: (4) Hypomagnesemia: -Likely secondary to GI loss with diarrhea -Replace, monitor electrolytes 04/16/2018 K and mag improving Continue to monitor and replace (5) Alcohol use: -Patient reports drinking 7 beers/day -No history of withdrawal in the past -Monitor patient closely for signs of withdrawal -Start multivitamin, folic acid, thiamine 04/16/2018 No signs of withdrawal Continue alcohol withdrawal protocol including gabapentin taper protocol (6) Hypertension: -BP in the lower side Continue metoprolol but hold HCTZ and lisinopril to prevent hypotension (7) Paroxysmal atrial fibrillation: New onset Noted while on telemetry Echocardiogram: EF 55%, no valvular pathology, grade 1 diastolic dysfunction Cardiology consulted Continue metoprolol 25 mg twice daily Continue heparin drip (8) LBBB (left bundle branch block): Ischemic evaluation as an outpatient (9) DVT prophylaxis: -SQ Lovenox (10) Discharge planning issues: Anticipate discharge to home medically stable Subjective Seen resting in bed, comfortable, watching TV Follow-up for diarrhea, hyponatremia, atrial fibrillation States he feels improved today Resting well overnight Had 2 bowel movements overnight, nonbloody Denies abdominal pain, nausea No chest pain, shortness of breath, palpitations, dizziness No tremors, shakiness, anxiety, sweats, hallucinations No other symptoms Physical Exam 2 Vital Signs (Past 24 Hours): Last Vital Signs Temp 37.3 C 04/16/18 15:35 Pulse 77 04/16/18 15:35 Resp 16 04/16/18 15:35 BP 110/66 04/16/18 15:35 Pulse Ox 98 04/16/18 15:35 Physical Exam: General- oriented x 3, not in distress, speaks in sentences with no effort or accessory muscle use Eyes- anicteric Neck- no JVD Lungs- clear breath sounds bilaterally, no crackles, no wheezing Heart- normal rate, irregularly irregular rhythm; no murmurs Abdomen- normal bowel sounds, nondistended, soft, nontender Extremities- no pretibial edema, no calf tenderness Neuro- alert, oriented x 3; no gross focal neurologic deficits Skin- warm & dry Results & Data Laboratory Results Laboratory Results - last 24 hr 04/15/18 04/15/18 04/15/18 11:59 17:57 17:57 WBC RBC Hgb Hct MCV MCH MCHC RDW Std Deviation RDW Coeff of Cheryl Plt Count MPV PT 11.8 INR 1.2 H APTT 28.6 PTT Ratio 1.1 Sodium 125 L Potassium 2.9 L Chloride 90 L Carbon Dioxide 26 Anion Gap 9.0 BUN 9 Creatinine 1.00 Est Cr Clr Drug Dosing 57.8 Est GFR ( Amer) 83.8 Est GFR (Non-Af Amer) 72.3 BUN/Creatinine Ratio 8.7 L Glucose 156 H Calcium 7.9 L Magnesium Folate 12.68 Stl C. diff Tox B Gene 04/15/18 04/16/18 04/16/18 23:56 01:32 08:17 WBC 10.04 RBC 3.89 L Hgb 13.8 L Hct 39.3 L MCV 101.0 H MCH 35.5 H MCHC 35.1 RDW Std Deviation 43.8 RDW Coeff of Cheryl 11.9 Plt Count 362 MPV 8.4 PT INR APTT 41.7 H PTT Ratio 1.6 Sodium 128 L Potassium 3.4 L D Chloride 93 L Carbon Dioxide 27 Anion Gap 8.0 BUN 8 Creatinine 1.01 Est Cr Clr Drug Dosing 57.3 Est GFR ( Amer) 82.8 Est GFR (Non-Af Amer) 71.4 BUN/Creatinine Ratio 8.2 L Glucose 113 H Calcium 8.0 L Magnesium 1.8 Folate Stl C. diff Tox B Gene 04/16/18 04/16/18 04/16/18 08:17 08:17 08:55 WBC RBC Hgb Hct MCV MCH MCHC RDW Std Deviation RDW Coeff of Cheryl Plt Count MPV PT INR APTT 39.0 H PTT Ratio 1.5 Sodium 129 L Potassium 3.2 L Chloride 96 L Carbon Dioxide 25 Anion Gap 8.0 BUN 7 Creatinine 0.98 Est Cr Clr Drug Dosing 59.0 Est GFR ( Amer) 85.8 Est GFR (Non-Af Amer) 74.1 BUN/Creatinine Ratio 7.0 L Glucose 132 H Calcium 7.7 L Magnesium 1.8 Folate Stl C. diff Tox B Gene Neg C.diff Toxin B
[2018-04-16 17:44] LABS: BUN Creatinine Ratio 6.1 (10-20); Creatinine Clr Calc Pharmacy 63.6 ml/min; Est GFR (African American) 93.9; Partial Thromboplastin Ratio 2.8; Potassium 3.6 mmol/L (3.5-5.1)
[2018-04-16 17:58] LABS: Partial Thromboplastin Time 73.7 Seconds (21.0-31.0)
[2018-04-16] MEDS: LOPERAMIDE HCL 2 MG CAP PO PRN (18:09)
[2018-04-16] MEDS ORDERED: POTASSIUM CHLORIDE 10 MEQ TABCR PO ONE (19:00)
[2018-04-17] MEDS: HEPARIN LOW DOSE DEXTROSE 25,000 UNITS/500 ML IV SCH (00:50)
[2018-04-17 00:53] LABS: Partial Thromboplastin Ratio 2.5
[2018-04-17 00:54] LABS: Partial Thromboplastin Time 65.6 Seconds (21.0-31.0)
[2018-04-17] MEDS: SODIUM CHLORIDE 0.9% 1000ML 1,000 ML IV SCH ×2 (05:38→17:04)
[2018-04-17] MEDS: GABAPENTIN 600 MG TAB PO SCH ×2 (06:24→17:01)
[2018-04-17] MEDS: CIPROFLOXACIN 500 MG TAB PO SCH ×2 (08:59→19:31)
[2018-04-17] MEDS: CEROVITE ADV FORMULA TAB PO SCH (09:00)
[2018-04-17] MEDS: CHOLECALCIFEROL 1,000 UNITS TAB PO SCH (09:00)
[2018-04-17] MEDS: MULTIVITAMIN TAB PO SCH (09:00)
[2018-04-17] MEDS: THIAMINE HCL 100 MG TAB PO SCH (09:01)
[2018-04-17] MEDS: FOLIC ACID 1 MG TAB PO SCH (09:01)
[2018-04-17] MEDS: METOPROLOL TARTRATE 25 MG TAB PO SCH ×2 (09:02→19:31)
[2018-04-17] MEDS: CYANOCOBALAMIN 500 MCG TABLET (VITAMIN B-12) PO SCH (09:02)
[2018-04-17] MEDS: POTASSIUM CHLORIDE 10 MEQ TABCR PO SCH ×2 (09:03→10:05)
[2018-04-17 09:42] LABS: BUN Creatinine Ratio 3.7 (10-20); Calcium 8.1 mg/dl (8.5-10.1); Creatinine Clr Calc Pharmacy 58.4 ml/min; Est GFR (African American) 84.8; Est GFR (Non-African American) 73.2; Magnesium 1.6 mg/dl (1.8-2.4); Potassium 3.6 mmol/L (3.5-5.1)
--- NOTE | 2018-04-17 10:12 | Cardiology Progress Note ---
Date of Service April 17, 2018 Assessment & Plan (1) Paroxysmal atrial fibrillation: ECGs document sinus rhythm with frequent PACs, however, review of telemetry reveals bursts of atrial fibrillation with rapid ventricular response. Patient asymptomatic. Continue metoprolol tartrate 25 mg twice daily and intravenous heparin. Recommend Coumadin if no contraindications from a gastroenterologic perspective. Consider GI consultation regarding colitis. (2) LBBB (left bundle branch block): Monitor telemetry. Preserved LV systolic function. Outpatient ischemic evaluation. (3) Colitis: Consider gastroenterology consultation. (4) Alcohol use: (5) Hypokalemia: Replace as indicated. (6) Hyponatremia: Continue intravenous hydration with normal saline. Repeat basic metabolic panel daily. (7) Hypertension: Borderline resting hypotension on admission. Continue intravenous hydration. Continue beta-mulugeta as tolerated. Subjective Patient seen and examined at the bedside. Reports 2 episodes of diarrhea overnight where he soiled the bed. Denies chest pain or shortness of breath. Runs of paroxysmal atrial fibrillation as well as frequent PACs noted on telemetry. Patient denies palpitations. Review of Systems All systems reviewed & are unremarkable except as noted in HPI & below Physical Exam 2 Vital Signs (Past 24 Hours): Last Vital Signs Temp 36.7 C 04/17/18 07:18 Pulse 69 04/17/18 07:18 Resp 18 04/17/18 07:18 BP 111/61 04/17/18 07:18 Pulse Ox 97 04/17/18 07:18 Physical Exam: General: NAD, AAO x3, well nourished. HEENT: Normocephalic. Atraumatic. Conjunctiva pink, no scleral icterus. Neck: No carotid bruits, the carotid upstrokes are brisk. No JVD. No HJR Heart: Irregular rhythm, normal S-1 and S-2 no S-3 or S-4 gallop. No murmurs or rub appreciated. PMI is not displaced. No RV heave. Lungs: Clear bilateral without rales , rhonchi, or wheeze. Abdomen: Mild distention, nontender, normal bowel sounds. No masses or organomegaly. No abdominal bruits. Extremities: No clubbing, cyanosis, or edema. Pulses: radial=2/4, posterior tibial=2/4. Neuro: Cranial nerves grossly intact. No focal motor deficit.
[2018-04-17 10:44] LABS: Hematocrit (blood only) 35.9 % (42-52); Hemoglobin 12.4 g/dL (14.0-18.0); Mean Corpuscular Hgb Conc 34.5 g/dL (32-36); Mean Corpuscular Volume 103.5 fL (80-100); Mean Platelet Volume 8.5 fL (7.4-10.4); Platelet Count 327 K/uL (130-400); RDW Coefficient of Variation 12.2 % (11.5-14.5); RDW Standard Deviation 45.6 fL (36.4-46.3); Red Blood Count 3.47 M/uL (4.7-6.1); White Blood Count 8.12 K/uL (4.8-10.8)
[2018-04-17 11:07] LABS: Partial Thromboplastin Ratio 2.1
[2018-04-17 11:18] LABS: ALC (manual) 1.57 K/uL (1.2-3.4); Echinocytes 2+; Eosinophils # (manual) 0.15 K/uL (0-0.5); Lymphocytes # (manual) 1.57 K/uL (1.2-3.4); Lymphocytes % (manual) 19.3 %; Metamyelocytes # (manual) 0.28 K/uL (0-0); Metamyelocytes % (manual) 3.5 %; Monocytes # (manual) 0.78 K/uL (0.11-0.59); Monocytes % (manual) 9.6 %; Myelocytes # (manual) 0.43 K/uL (0-0); Myelocytes % (manual) 5.3 %; Neutrophils % (manual) 60.5 %
[2018-04-17 11:32] LABS: Partial Thromboplastin Time 53.6 Seconds (21.0-31.0)
[2018-04-17] MEDS: LOPERAMIDE HCL 2 MG CAP PO PRN (17:01)
[2018-04-17] MEDS ORDERED: MAGNESIUM SULFATE / D5W 1 GM/100 ML BAG IV ONE (18:30)
--- NOTE | 2018-04-17 21:32 | Hospitalist Progress Note ---
Date of Service April 17, 2018 Subjective Made aware by RN of positive Hemoccult test. Continue IV heparin if hemoglobin stable as per AM provider. Physical Exam 2 Vital Signs (Past 24 Hours): Last Vital Signs Temp 37.2 C 04/17/18 19:09 Pulse 82 04/17/18 19:09 Resp 18 04/17/18 19:09 BP 132/74 04/17/18 19:09 Pulse Ox 93 04/17/18 19:09
[2018-04-17 21:46] LABS: Basophils # (auto) 0.03 K/uL (0-0.2); Basophils % (auto) 0.3 %; Eosinophils % (auto) 3.5 %; Hematocrit (blood only) 36.2 % (42-52); Hemoglobin 12.5 g/dL (14.0-18.0); Immature Granulocytes # (auto) 0.34 K/uL (0.00-0.02); Lymphocytes # (auto) 1.93 K/uL (1.2-3.4); Lymphocytes % (auto) 22.4 %; Mean Corpuscular Hgb Conc 34.5 g/dL (32-36); Mean Corpuscular Volume 102.3 fL (80-100); Mean Platelet Volume 8.5 fL (7.4-10.4); Monocytes # (auto) 1.66 K/uL (0.11-0.59); Monocytes % (auto) 19.3 %; Neutrophils # (auto) 4.34 K/uL (1.4-6.5); Neutrophils % (auto) 50.5 %; Platelet Count 335 K/uL (130-400); RDW Coefficient of Variation 12.2 % (11.5-14.5); RDW Standard Deviation 45.7 fL (36.4-46.3); Red Blood Count 3.54 M/uL (4.7-6.1)
--- NOTE | 2018-04-18 03:43 | Hospitalist Progress Note ---
Date of Service April 18, 2018 Assessment & Plan (1) Hyponatremia: -Admit to [facility] with telemetry -Patient presenting from home with reports of 2 weeks of generalized weakness, lethargy, diarrhea -In the ED, CT ABD/pelvis showing a nonspecific colitis. Labs demonstrated Na+ 126 with associated hypokalemia and hypomagnesemia -Likely hypovolemic hyponatremia secondary to recent initiation of hydrochlorothiazide in combination with diarrhea and chronic alcohol use -IVF (NSS at 100ml/hr), serial BMPs to monitor for overcorrection of sodium 04/16/2018 Sodium is slightly increased to 128 from 126 Continue NSS Check PRP at 6 PM tonight 04/17/18 Na 133 continue gentle NSS (2) Colitis: -Noted on CT ABD/pelvis -will start p.o. Cipro -Stool for C. difficile and culture -Noted colonoscopy 08/2017-had polyps resected which were benign on biopsy 04/16/2018 The area seems to be improving Stool cultures pending C. difficile negative Continue ciprofloxacin twice a day Start loperamide as needed for loose stools 04/17/18 still having diarrhea continue Cipro and NSS consult GI (3) Hypokalemia: (4) Hypomagnesemia: -Likely secondary to GI loss with diarrhea -Replace, monitor electrolytes 04/16/2018 K and mag improving Continue to monitor and replace 04/17/18 improving continue to monitor and reaplce (5) Alcohol use: -Patient reports drinking 7 beers/day -No history of withdrawal in the past -Monitor patient closely for signs of withdrawal -Start multivitamin, folic acid, thiamine 04/16/2018 No signs of withdrawal Continue alcohol withdrawal protocol including gabapentin taper protocol 04/17/18 no signs of withdrawal continue Protocol (6) Hypertension: -BP in the lower side Continue metoprolol but hold HCTZ and lisinopril to prevent hypotension (7) Paroxysmal atrial fibrillation: New onset Noted while on telemetry Echocardiogram: EF 55%, no valvular pathology, grade 1 diastolic dysfunction Cardiology consulted Continue metoprolol 25 mg twice daily Continue heparin drip (8) LBBB (left bundle branch block): Ischemic evaluation as an outpatient (9) DVT prophylaxis: -now on heparin drip (10) Discharge planning issues: Anticipate discharge to home medically stable Subjective ff up for hyponatremia, diarrhea, a fib seen resting in bed, family at bedside states he feels slighty improved still has diarrhea 3-5 times thru the day, non bloody, no abdominal pain, fever/ chills denies chest pain, palpitations, dizziness no bleeding no tremors/shaking/sweats/hallucinations Physical Exam 2 Vital Signs (Past 24 Hours): Last Vital Signs Temp 36.9 C 04/17/18 23:16 Pulse 82 04/18/18 00:00 Resp 19 04/17/18 23:16 BP 103/63 04/17/18 23:16 Pulse Ox 95 04/17/18 23:16 Physical Exam: General- oriented x 3, not in distress, speaks in sentences with no effort or accessory muscle use Eyes- anicteric Neck- no JVD Lungs- clear breath sounds bilaterally, no rales/wheezes Heart- normal rate, irregularly iirregular rhythm; no murmurs Abdomen- normal bowel sounds, nondistended, soft, nontender Extremities- no pretibial edema, no calf tenderness Neuro- alert, oriented x 3; no gross focal neurologic deficits Skin- warm & dry Results & Data Laboratory Results noted and reviewed
[2018-04-18] MEDS: HEPARIN LOW DOSE DEXTROSE 25,000 UNITS/500 ML IV SCH (04:55)
[2018-04-18 05:50] LABS: Partial Thromboplastin Ratio 2.2
[2018-04-18 05:56] LABS: Partial Thromboplastin Time 56.4 Seconds (21.0-31.0)
[2018-04-18] MEDS: GABAPENTIN 600 MG TAB PO SCH (06:17)
[2018-04-18] MEDS: MULTIVITAMIN TAB PO SCH (08:03)
[2018-04-18] MEDS: METOPROLOL TARTRATE 25 MG TAB PO SCH ×2 (08:03→20:40)
[2018-04-18] MEDS: SODIUM CHLORIDE 0.9% 1000ML 1,000 ML IV SCH ×2 (08:03→13:04)
[2018-04-18] MEDS: FOLIC ACID 1 MG TAB PO SCH (08:03)
[2018-04-18] MEDS: THIAMINE HCL 100 MG TAB PO SCH (08:03)
[2018-04-18] MEDS: CEROVITE ADV FORMULA TAB PO SCH (08:03)
[2018-04-18] MEDS: CIPROFLOXACIN 500 MG TAB PO SCH ×2 (08:03→20:40)
[2018-04-18] MEDS: CYANOCOBALAMIN 500 MCG TABLET (VITAMIN B-12) PO SCH (08:03)
[2018-04-18] MEDS: POTASSIUM CHLORIDE 10 MEQ TABCR PO SCH (08:03)
[2018-04-18] MEDS: CHOLECALCIFEROL 1,000 UNITS TAB PO SCH (08:03)
--- NOTE | 2018-04-18 10:03 | Cardiology Progress Note ---
Date of Service April 18, 2018 Assessment & Plan (1) Paroxysmal atrial fibrillation: ECGs document sinus rhythm with frequent PACs, however, review of telemetry reveals bursts of atrial fibrillation with rapid ventricular response. Patient asymptomatic. Continue metoprolol tartrate 25 mg twice daily and intravenous heparin. Begin Coumadin 5 mg daily. Repeat INR in a.m. Consider GI consultation regarding colitis. (2) LBBB (left bundle branch block): Monitor telemetry. Preserved LV systolic function. Outpatient ischemic evaluation. (3) Colitis: Consider gastroenterology consultation. (4) Alcohol use: (5) Hypokalemia: Replace as indicated. (6) Hyponatremia: Improving with IV hydration.Continue intravenous hydration with normal saline. Repeat basic metabolic panel daily. (7) Hypertension: Borderline resting hypotension on admission. Continue intravenous hydration. Continue beta-mulugeta as tolerated. Subjective Patient seen and examined at the bedside. No recurrent diarrhea overnight. Predominately sinus rhythm with PACs on telemetry with short bursts of atrial fibrillation. Denies palpitations. No signs/symptoms of GI/ blood loss. Review of Systems All systems reviewed & are unremarkable except as noted in HPI & below Physical Exam 2 Vital Signs (Past 24 Hours): Last Vital Signs Temp 36.7 C 04/18/18 07:16 Pulse 87 04/18/18 08:00 Resp 18 04/18/18 07:16 BP 114/70 04/18/18 07:16 Pulse Ox 95 04/18/18 07:16 Physical Exam: General: NAD, AAO x3, well nourished. HEENT: Normocephalic. Atraumatic. Conjunctiva pink, no scleral icterus. Neck: No carotid bruits, the carotid upstrokes are brisk. No JVD. No HJR Heart: Irregular rhythm, normal S-1 and S-2 no S-3 or S-4 gallop. No murmurs or rub appreciated. PMI is not displaced. No RV heave. Lungs: Clear bilateral without rales , rhonchi, or wheeze. Abdomen: Mildly distended, nontender.Normal bowel sounds. No masses or organomegaly. No abdominal bruits. Extremities: No clubbing, cyanosis, or edema. Pulses: radial=2/4, Dorsalis pedis =2/4, posterior tibial=2/4. Neuro: Cranial nerves grossly intact. No focal motor deficit.
[2018-04-18 10:14] LABS: BUN Creatinine Ratio 2.8 (10-20); Calcium 7.2 mg/dl (8.5-10.1); Est GFR (African American) 97.4; Potassium 3.5 mmol/L (3.5-5.1)
--- NOTE | 2018-04-18 12:30 | Gastrointestinal Consultation ---
Date of Consultation April 18, 2018 Assessment & Plan (1) Colitis: Present on Admission?: Yes (2) Diarrhea: Pt is a 77 y/o male w weakness, found to have new Afib, hypokalemic, hyponatremic. He's also been having diarrhea w stool incontinence, nocturnal awakening x [address] abd/pelvis w colitis, non specific. Stool cx and Cdiff negative. FOBT positive. Last colonoscopy 08/2017 w findings of adenomatous polyps. DDX: IBD, ischemic colitis. - CL diet tomorrow - Hold Heparin gtt 04/20 at 0001. Spoke w Cardiology and will hold off starting Coumadin for now. - NPO 04/20 at 0001 for colonoscopy 04/20. Bowel prep ordered. Present on Admission?: Yes Supervising Physician Co-Signing Physician Notes Attg addendum: I interviewed and examined pt, reviewed chart and labs -- pt with diarrhea x 2 weeks, CT with colitis, mild elyte abnl on admission, stool cx neg. Recent cscopy unremarkable. Plan cscopy on Wed. History of Present Illness Reason for Consultation: Diarrhea Requesting Physician: Dr. Inocente Prater Attending Physician: Dr. Bronwyn Alvarado History of Present Illness Pt is a 77 y/o male admitted with generalized weakness, found to be hypokalemic and hyponatremic, having new onset Afib. He is currently on Heparin gtt, Metoprolol, awaiting to start Coumadin. Electrolytes improving. GI consulted for diarrhea. Pt reports baseline BM 2x a day, formed stools. Starting 2 weeks ago, stools become loose, and he's having nocturnal awakening w diarrhea, stool incontinence, on Depends. He denies much abd pain nor seeing any blood in stools , dark tarry stools. He had CT abd/pelvis w/o contrast on admission which showed wall thickening from ascending colon to rectum area w inflammatory changes. Stool studies negative for infections but FOBT was positive. He denies any sick contact, recent travels, antibx, raw/undercooked meats. He does drink ETOH up to 7 beers a day. Labs notable for macrocytic anemia. No family hx of IBD. His last colonoscopy was 08/2017, adenomatous polyps, recommended for repeat in 3 yrs Allergies Allergy/AdvReac Type Severity Reaction Status Date / Time No Known Allergies Allergy Verified 04/15/18 12:31 Home Medications Home Medications Medication Instructions Recorded Confirmed Type cyanocobalamin (vitamin B-12) 1,000 mcg PO QAM 01/20/18 04/15/18 History [Vitamin B-12] metoprolol tartrate 25 mg PO BID 01/20/18 04/15/18 History saw palmetto 1,200 mg PO QAM 01/20/18 04/15/18 History vit C-vit [id number] 1 cap PO QAM 01/20/18 04/15/18 History [Ocuvite] cholecalciferol (vitamin D3) 1,000 unit PO QAM 04/15/18 04/15/18 History [Vitamin D3] hydrochlorothiazide 12.5 mg PO DAILY 04/15/18 04/15/18 History lisinopril 5 mg PO DAILY 04/15/18 04/15/18 History Patient History Medical History Hypertension (Chronic) Basal cell carcinoma (BCC) in situ of skin (Inactive) Hypertension (Inactive) Rheumatic fever (Inactive) HX OF WITH MURMUR; 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 Surgical History S/P tonsillectomy and adenoidectomy (Chronic) History of appendectomy (Chronic) H/O Moh's micrographic surgery for skin cancer (Inactive) X2 History of appendectomy (Inactive) History of colonoscopy (Inactive) History of tonsillectomy and adenoidectomy (Inactive) History of tooth extraction (Inactive) WISDOM TOOTH Family History Other Family history non-contributory Social History Current Living Situation: Spouse Other Information That Helps Us Care for You: No Feels Safe at Home: Yes Safety Concerns: Feels Safe At This Time Smoking Status: Never smoker Do You Dip or Chew Tobacco: No Second Hand Exposure: No Tobacco Cessation Education Requested by Patient: No Hx Alcohol Use: Yes Alcohol type: beer Alcohol Intake Frequency: 3 or more drinks per day Alcohol Intake Frequency Comment: 7 beers/day Hx Substance Use: No Beliefs That Will Affect Care: None Preferred Language: Indonesian Communication Ability: Effective Pack Master Required: No Review of Systems Constitutional: as per Subjective / HPI and + weakness; no fever and no chills Respiratory: no cough and no dyspnea Cardiovascular: as per Subjective / HPI Gastrointestinal: as per Subjective / HPI Physical Exam 2 Vital Signs (Past 24 Hours): Last Vital Signs Temp 37.0 C 04/18/18 12:10 Pulse 74 04/18/18 12:10 Resp 18 04/18/18 12:10 BP 129/77 04/18/18 12:10 Pulse Ox 95 04/18/18 12:10 Constitutional: WD/WN, vitals as above well groomed, cooperative and comfortable Eyes: PERRL, conjunctivae normal, anicteric sclerae ENMT: external ear and nose normal, oropharynx normal Respiratory: normal respiratory effort, lungs clear to auscultation Cardiovascular: RRR, no murmur, no edema Gastrointestinal (Abdomen): normal bowel sounds, soft, nontender, no hepatosplenomegaly Skin: no rashes, warm and dry no jaundice Neurologic: Motor/Sensory: no asterixis Psychiatric: A+Ox3, euthymic affect Lymphatic: no lymphedema Results & Data Laboratory Results Laboratory Results - last 72 hr 04/15/18 04/15/18 04/15/18 11:59 11:59 11:59 WBC RBC Hgb Hct MCV MCH MCHC RDW Std Deviation RDW Coeff of Cheryl Plt Count MPV Immature Gran % (Auto) 4.6 Neut % (Auto) 62.8 Lymph % (Auto) 15.7 [place] % (Auto) 16.2 Eos % (Auto) 0.4 Baso % (Auto) 0.3 Immature Gran # (Auto) 0.43 H Neut # (Auto) 5.92 Lymph # (Auto) 1.48 [place] # (Auto) 1.53 H Eos # (Auto) 0.04 Baso # (Auto) 0.03 Neutrophils % (Manual) Lymphocytes % (Manual) Monocytes % (Manual) Eosinophils % (Manual) Metamyelocytes % (Man) Myelocytes % (Man) Neutrophils # (Manual) Total Absolute Neuts Lymphocytes # (Manual) Total Abs Lymphocytes Monocytes # (Manual) Eosinophils # (Manual) Metamyelocytes # (Man) Myelocytes # (Manual) Echinocytes PT INR APTT PTT Ratio Sodium 126 L Potassium 3.1 L Chloride 89 L Carbon Dioxide 29 Anion Gap 8.0 BUN 8 Creatinine 1.05 Est Cr Clr Drug Dosing 55.1 Est GFR ( Amer) 79.0 Est GFR (Non-Af Amer) 68.1 BUN/Creatinine Ratio 7.3 L Glucose 107 H POC Glucose Osmolality 261 L Calcium 8.4 L Magnesium 1.4 L Total Bilirubin 1.0 AST 11 L ALT 12 Alkaline Phosphatase 55 Troponin I < 0.015 Total Protein 7.5 Albumin 2.5 L Globulin 5.0 H Albumin/Globulin Ratio 0.5 L Folate TSH 2.060 Urine Osmolality Urine Sodium Urine Potassium Urine Chloride Stool Occult Bld Scrn Stl C. diff Tox B Gene Blood Type Antibody Screen 04/15/18 04/15/18 04/15/18 11:59 12:10 12:10 WBC RBC Hgb Hct MCV MCH MCHC RDW Std Deviation RDW Coeff of Cheryl Plt Count MPV Immature Gran % (Auto) Neut % (Auto) Lymph % (Auto) [place] % (Auto) Eos % (Auto) Baso % (Auto) Immature Gran # (Auto) Neut # (Auto) Lymph # (Auto) [place] # (Auto) Eos # (Auto) Baso # (Auto) Neutrophils % (Manual) Lymphocytes % (Manual) Monocytes % (Manual) Eosinophils % (Manual) Metamyelocytes % (Man) Myelocytes % (Man) Neutrophils # (Manual) Total Absolute Neuts Lymphocytes # (Manual) Total Abs Lymphocytes Monocytes # (Manual) Eosinophils # (Manual) Metamyelocytes # (Man) Myelocytes # (Manual) Echinocytes PT 11.8 INR 1.2 H APTT 28.6 PTT Ratio 1.1 Sodium Potassium Chloride Carbon Dioxide Anion Gap BUN Creatinine Est Cr Clr Drug Dosing Est GFR ( Amer) Est GFR (Non-Af Amer) BUN/Creatinine Ratio Glucose POC Glucose Osmolality Calcium Magnesium Total Bilirubin AST ALT Alkaline Phosphatase Troponin I Total Protein Albumin Globulin Albumin/Globulin Ratio Folate TSH Urine Osmolality 186 L Urine Sodium 25 Urine Potassium 14.2 Urine Chloride 42 Stool Occult Bld Scrn Stl C. diff Tox B Gene Blood Type Antibody Screen 04/15/18 04/15/18 04/15/18 17:57 17:57 23:56 WBC RBC Hgb Hct MCV MCH MCHC RDW Std Deviation RDW Coeff of Cheryl Plt Count MPV Immature Gran % (Auto) Neut % (Auto) Lymph % (Auto) [place] % (Auto) Eos % (Auto) Baso % (Auto) Immature Gran # (Auto) Neut # (Auto) Lymph # (Auto) [place] # (Auto) Eos # (Auto) Baso # (Auto) Neutrophils % (Manual) Lymphocytes % (Manual) Monocytes % (Manual) Eosinophils % (Manual) Metamyelocytes % (Man) Myelocytes % (Man) Neutrophils # (Manual) Total Absolute Neuts Lymphocytes # (Manual) Total Abs Lymphocytes Monocytes # (Manual) Eosinophils # (Manual) Metamyelocytes # (Man) Myelocytes # (Manual) Echinocytes PT INR APTT PTT Ratio Sodium 125 L 128 L Potassium 2.9 L 3.4 L D Chloride 90 L 93 L Carbon Dioxide 26 27 Anion Gap 9.0 8.0 BUN 9 8 Creatinine 1.00 1.01 Est Cr Clr Drug Dosing 57.8 57.3 Est GFR ( Amer) 83.8 82.8 Est GFR (Non-Af Amer) 72.3 71.4 BUN/Creatinine Ratio 8.7 L 8.2 L Glucose 156 H 113 H POC Glucose Osmolality Calcium 7.9 L 8.0 L Magnesium 1.8 Total Bilirubin AST ALT Alkaline Phosphatase Troponin I Total Protein Albumin Globulin Albumin/Globulin Ratio Folate 12.68 TSH Urine Osmolality Urine Sodium Urine Potassium Urine Chloride Stool Occult Bld Scrn Stl C. diff Tox B Gene Blood Type Antibody Screen 04/16/18 04/16/18 04/16/18 01:32 08:17 08:17 WBC 10.04 RBC 3.89 L Hgb 13.8 L Hct 39.3 L MCV 101.0 H MCH 35.5 H MCHC 35.1 RDW Std Deviation 43.8 RDW Coeff of Cheryl 11.9 Plt Count 362 MPV 8.4 Immature Gran % (Auto) Neut % (Auto) Lymph % (Auto) [place] % (Auto) Eos % (Auto) Baso % (Auto) Immature Gran # (Auto) Neut # (Auto) Lymph # (Auto) [place] # (Auto) Eos # (Auto) Baso # (Auto) Neutrophils % (Manual) Lymphocytes % (Manual) Monocytes % (Manual) Eosinophils % (Manual) Metamyelocytes % (Man) Myelocytes % (Man) Neutrophils # (Manual) Total Absolute Neuts Lymphocytes # (Manual) Total Abs Lymphocytes Monocytes # (Manual) Eosinophils # (Manual) Metamyelocytes # (Man) Myelocytes # (Manual) Echinocytes PT INR APTT 41.7 H PTT Ratio 1.6 Sodium 129 L Potassium 3.2 L Chloride 96 L Carbon Dioxide 25 Anion Gap 8.0 BUN 7 Creatinine 0.98 Est Cr Clr Drug Dosing 59.0 Est GFR ( Amer) 85.8 Est GFR (Non-Af Amer) 74.1 BUN/Creatinine Ratio 7.0 L Glucose 132 H POC Glucose Osmolality Calcium 7.7 L Magnesium 1.8 Total Bilirubin AST ALT Alkaline Phosphatase Troponin I Total Protein Albumin Globulin Albumin/Globulin Ratio Folate TSH Urine Osmolality Urine Sodium Urine Potassium Urine Chloride Stool Occult Bld Scrn Stl C. diff Tox B Gene Blood Type Antibody Screen 04/16/18 04/16/18 04/16/18 08:17 08:55 17:16 WBC RBC Hgb Hct MCV MCH MCHC RDW Std Deviation RDW Coeff of Cheryl Plt Count MPV Immature Gran % (Auto) Neut % (Auto) Lymph % (Auto) [place] % (Auto) Eos % (Auto) Baso % (Auto) Immature Gran # (Auto) Neut # (Auto) Lymph # (Auto) [place] # (Auto) Eos # (Auto) Baso # (Auto) Neutrophils % (Manual) Lymphocytes % (Manual) Monocytes % (Manual) Eosinophils % (Manual) Metamyelocytes % (Man) Myelocytes % (Man) Neutrophils # (Manual) Total Absolute Neuts Lymphocytes # (Manual) Total Abs Lymphocytes Monocytes # (Manual) Eosinophils # (Manual) Metamyelocytes # (Man) Myelocytes # (Manual) Echinocytes PT INR APTT 39.0 H 73.7 H* PTT Ratio 1.5 2.8 Sodium Potassium Chloride Carbon Dioxide Anion Gap BUN Creatinine Est Cr Clr Drug Dosing Est GFR ( Amer) Est GFR (Non-Af Amer) BUN/Creatinine Ratio Glucose POC Glucose Osmolality Calcium Magnesium Total Bilirubin AST ALT Alkaline Phosphatase Troponin I Total Protein Albumin Globulin Albumin/Globulin Ratio Folate TSH Urine Osmolality Urine Sodium Urine Potassium Urine Chloride Stool Occult Bld Scrn Stl C. diff Tox B Gene Neg C.diff Toxin B Blood Type Antibody Screen 04/16/18 04/17/18 04/17/18 17:16 00:16 07:28 WBC RBC Hgb Hct MCV MCH MCHC RDW Std Deviation RDW Coeff of Cheryl Plt Count MPV Immature Gran % (Auto) Neut % (Auto) Lymph % (Auto) [place] % (Auto) Eos % (Auto) Baso % (Auto) Immature Gran # (Auto) Neut # (Auto) Lymph # (Auto) [place] # (Auto) Eos # (Auto) Baso # (Auto) Neutrophils % (Manual) Lymphocytes % (Manual) Monocytes % (Manual) Eosinophils % (Manual) Metamyelocytes % (Man) Myelocytes % (Man) Neutrophils # (Manual) Total Absolute Neuts Lymphocytes # (Manual) Total Abs Lymphocytes Monocytes # (Manual) Eosinophils # (Manual) Metamyelocytes # (Man) Myelocytes # (Manual) Echinocytes PT INR APTT 65.6 H* PTT Ratio 2.5 Sodium 128 L Potassium 3.6 Chloride 96 L Carbon Dioxide 25 Anion Gap 7.0 BUN 6 L Creatinine 0.91 Est Cr Clr Drug Dosing 63.6 Est GFR ( Amer) 93.9 Est GFR (Non-Af Amer) 81.0 BUN/Creatinine Ratio 6.1 L Glucose 102 H POC Glucose 87 Osmolality Calcium 8.0 L Magnesium Total Bilirubin AST ALT Alkaline Phosphatase Troponin I Total Protein Albumin Globulin Albumin/Globulin Ratio Folate TSH Urine Osmolality Urine Sodium Urine Potassium Urine Chloride Stool Occult Bld Scrn Stl C. diff Tox B Gene Blood Type Antibody Screen 04/17/18 04/17/18 04/17/18 08:46 10:31 10:31 WBC 8.12 RBC 3.47 L Hgb 12.4 L Hct 35.9 L MCV 103.5 H MCH 35.7 H MCHC 34.5 RDW Std Deviation 45.6 RDW Coeff of Cheryl 12.2 Plt Count 327 MPV 8.5 Immature Gran % (Auto) Neut % (Auto) Lymph % (Auto) [place] % (Auto) Eos % (Auto) Baso % (Auto) Immature Gran # (Auto) Neut # (Auto) Lymph # (Auto) [place] # (Auto) Eos # (Auto) Baso # (Auto) Neutrophils % (Manual) 60.5 Lymphocytes % (Manual) 19.3 Monocytes % (Manual) 9.6 Eosinophils % (Manual) 1.8 Metamyelocytes % (Man) 3.5 Myelocytes % (Man) 5.3 Neutrophils # (Manual) 4.91 Total Absolute Neuts 4.91 Lymphocytes # (Manual) 1.57 Total Abs Lymphocytes 1.57 Monocytes # (Manual) 0.78 H Eosinophils # (Manual) 0.15 Metamyelocytes # (Man) 0.28 H Myelocytes # (Manual) 0.43 H Echinocytes 2+ PT INR APTT 53.6 H* PTT Ratio 2.1 Sodium 133 L Potassium 3.6 Chloride 100 Carbon Dioxide 24 Anion Gap 9.0 BUN 4 L Creatinine 0.99 Est Cr Clr Drug Dosing 58.4 Est GFR ( Amer) 84.8 Est GFR (Non-Af Amer) 73.2 BUN/Creatinine Ratio 3.7 L Glucose 109 H POC Glucose Osmolality Calcium 8.1 L Magnesium 1.6 L Total Bilirubin AST ALT Alkaline Phosphatase Troponin I Total Protein Albumin Globulin Albumin/Globulin Ratio Folate TSH Urine Osmolality Urine Sodium Urine Potassium Urine Chloride Stool Occult Bld Scrn Stl C. diff Tox B Gene Blood Type Antibody Screen 04/17/18 04/17/18 04/17/18 20:40 21:24 21:24 WBC 8.60 RBC 3.54 L Hgb 12.5 L Hct 36.2 L MCV 102.3 H MCH 35.3 H MCHC 34.5 RDW Std Deviation 45.7 RDW Coeff of Cheryl 12.2 Plt Count 335 MPV 8.5 Immature Gran % (Auto) 4.0 Neut % (Auto) 50.5 Lymph % (Auto) 22.4 [place] % (Auto) 19.3 Eos % (Auto) 3.5 Baso % (Auto) 0.3 Immature Gran # (Auto) 0.34 H Neut # (Auto) 4.34 Lymph # (Auto) 1.93 [place] # (Auto) 1.66 H Eos # (Auto) 0.30 Baso # (Auto) 0.03 Neutrophils % (Manual) Lymphocytes % (Manual) Monocytes % (Manual) Eosinophils % (Manual) Metamyelocytes % (Man) Myelocytes % (Man) Neutrophils # (Manual) Total Absolute Neuts Lymphocytes # (Manual) Total Abs Lymphocytes Monocytes # (Manual) Eosinophils # (Manual) Metamyelocytes # (Man) Myelocytes # (Manual) Echinocytes PT INR APTT PTT Ratio Sodium Potassium Chloride Carbon Dioxide Anion Gap BUN Creatinine Est Cr Clr Drug Dosing Est GFR ( Amer) Est GFR (Non-Af Amer) BUN/Creatinine Ratio Glucose POC Glucose Osmolality Calcium Magnesium Total Bilirubin AST ALT Alkaline Phosphatase Troponin I Total Protein Albumin Globulin Albumin/Globulin Ratio Folate TSH Urine Osmolality Urine Sodium Urine Potassium Urine Chloride Stool Occult Bld Scrn Positive H Stl C. diff Tox B Gene Blood Type A Positive Antibody Screen NEGATIVE 04/18/18 04/18/18 05:20 05:21 WBC RBC Hgb Hct MCV MCH MCHC RDW Std Deviation RDW Coeff of Cheryl Plt Count MPV Immature Gran % (Auto) Neut % (Auto) Lymph % (Auto) [place] % (Auto) Eos % (Auto) Baso % (Auto) Immature Gran # (Auto) Neut # (Auto) Lymph # (Auto) [place] # (Auto) Eos # (Auto) Baso # (Auto) Neutrophils % (Manual) Lymphocytes % (Manual) Monocytes % (Manual) Eosinophils % (Manual) Metamyelocytes % (Man) Myelocytes % (Man) Neutrophils # (Manual) Total Absolute Neuts Lymphocytes # (Manual) Total Abs Lymphocytes Monocytes # (Manual) Eosinophils # (Manual) Metamyelocytes # (Man) Myelocytes # (Manual) Echinocytes PT INR APTT 56.4 H* PTT Ratio 2.2 Sodium 133 L Potassium 3.5 Chloride 103 Carbon Dioxide 23 Anion Gap 7.0 BUN 2 L Creatinine 0.85 Est Cr Clr Drug Dosing 68.0 Est GFR ( Amer) 97.4 Est GFR (Non-Af Amer) 84.0 BUN/Creatinine Ratio 2.8 L Glucose 86 POC Glucose Osmolality Calcium 7.2 L Magnesium Total Bilirubin AST ALT Alkaline Phosphatase Troponin I Total Protein Albumin Globulin Albumin/Globulin Ratio Folate TSH Urine Osmolality Urine Sodium Urine Potassium Urine Chloride Stool Occult Bld Scrn Stl C. diff Tox B Gene Blood Type Antibody Screen Diagnostic Findings CT abd/pelvis w/o contrast 1. Circumferential wall thickening of the colon extending from the ascending segment through the rectum with surrounding inflammatory stranding and trace pericolic gutter free fluid is compatible with an acute nonspecific colitis. 2. No bowel obstruction. 3. Cholelithiasis without CT evidence of acute cholecystitis. 4. Age-indeterminate anterior endplate compression deformities at T12 and L1 without significant retropulsion.
[2018-04-18] MEDS ORDERED: WARFARIN SOD 5 MG TAB PO SCH (16:00)
[2018-04-19] MEDS: SODIUM CHLORIDE 0.9% 1000ML 1,000 ML IV SCH (01:51)
--- NOTE | 2018-04-19 05:00 | Hospitalist Progress Note ---
Date of Service April 19, 2018 delayed entry date of service 04/18/18 Assessment & Plan (1) Hyponatremia: -Admit to [facility] with telemetry -Patient presenting from home with reports of 2 weeks of generalized weakness, lethargy, diarrhea -In the ED, CT ABD/pelvis showing a nonspecific colitis. Labs demonstrated Na+ 126 with associated hypokalemia and hypomagnesemia -Likely hypovolemic hyponatremia secondary to recent initiation of hydrochlorothiazide in combination with diarrhea and chronic alcohol use -IVF (NSS at 100ml/hr), serial BMPs to monitor for overcorrection of sodium 04/16/2018 Sodium is slightly increased to 128 from 126 Continue NSS Check PRP at 6 PM tonight 04/17/18 Na 133 continue gentle NSS 04/18/2018 Sodium 133 Continue IV NSS (2) Colitis: -Noted on CT ABD/pelvis -will start p.o. Cipro -Stool for C. difficile and culture -Noted colonoscopy 08/2017-had polyps resected which were benign on biopsy 04/16/2018 The area seems to be improving Stool cultures pending C. difficile negative Continue ciprofloxacin twice a day Start loperamide as needed for loose stools 04/17/18 still having diarrhea continue Cipro and NSS consult GI 04/18/2018 Presented with diarrhea times 2 weeks, loose, nonbloody C. difficile negative Placed on Cipro p.o. and as needed loperamide Diarrhea improving GI consulted-for colonoscopy 04/19/2018 (3) Hypokalemia: (4) Hypomagnesemia: -Likely secondary to GI loss with diarrhea -Replace, monitor electrolytes 04/16/2018 K and mag improving Continue to monitor and replace 04/17/18 improving continue to monitor and reaplce 04/18/2018 Monitor and replace (5) Alcohol use: -Patient reports drinking 7 beers/day -No history of withdrawal in the past -Monitor patient closely for signs of withdrawal -Start multivitamin, folic acid, thiamine 04/16/2018 No signs of withdrawal Continue alcohol withdrawal protocol including gabapentin taper protocol 04/17/18 no signs of withdrawal continue Protocol 04/18/2018 Placed on gabapentin protocol No signs of alcohol withdrawal (6) Hypertension: -BP in the lower side Continue metoprolol but hold HCTZ and lisinopril to prevent hypotension (7) Paroxysmal atrial fibrillation: New onset Noted while on telemetry Echocardiogram: EF 55%, no valvular pathology, grade 1 diastolic dysfunction Cardiology consulted Continue metoprolol 25 mg twice daily Continue heparin drip, cardiology recommends Coumadin GI recommends to hold Coumadin until colonoscopy is completed (8) LBBB (left bundle branch block): Ischemic evaluation as an outpatient (9) DVT prophylaxis: -now on heparin drip (10) Discharge planning issues: Anticipate discharge to home medically stable Follow-up with PCP Follow-up with contract consultant and GI Subjective ff up for weakness, diarrhea x 2 weeks, and new onset afib noted while admitted resting in bed, comfortable in good spirits states diarrhea is improved today- only 2 BMS, semiformed, non bloody Denies abdominal pain, nausea, tolerating diet Denies chest pain shortness of breath palpitations bleeding No tremors, sweats, hallucinations No other symptoms Physical Exam 2 Vital Signs (Past 24 Hours): Last Vital Signs Temp 36.9 C 04/19/18 03:20 Pulse 73 04/19/18 03:20 Resp 16 04/19/18 03:20 BP 117/74 04/19/18 03:20 Pulse Ox 94 04/19/18 03:20 Physical Exam: General- oriented x 3, not in distress, speaks in sentences with no effort or accessory muscle use Eyes- anicteric Neck- no JVD Lungs-clear BS bilaterally, no wheezing, no crackles Heart- normal rate, irregularly irregular; no murmurs Abdomen- normal bowel sounds, nondistended, soft, nontender Extremities- no pretibial edema, no calf tenderness Neuro- alert, oriented x 3; no gross focal neurologic deficits Skin- warm & dry Results & Data Laboratory Results Noted and reviewed
[2018-04-19] MEDS ORDERED: GABAPENTIN 600 MG TAB PO SCH (06:00)
[2018-04-19] MEDS: HEPARIN LOW DOSE DEXTROSE 25,000 UNITS/500 ML IV SCH (06:20)
[2018-04-19 07:07] LABS: Hematocrit (blood only) 34.3 % (42-52); Hemoglobin 11.7 g/dL (14.0-18.0); Mean Corpuscular Hgb Conc 34.1 g/dL (32-36); Mean Corpuscular Volume 101.8 fL (80-100); Mean Platelet Volume 8.2 fL (7.4-10.4); Platelet Count 272 K/uL (130-400); RDW Coefficient of Variation 12.1 % (11.5-14.5); RDW Standard Deviation 44.9 fL (36.4-46.3); Red Blood Count 3.37 M/uL (4.7-6.1)
[2018-04-19 07:23] LABS: INR 1.4 (0.9-1.1); Partial Thromboplastin Ratio 2.1; Prothrombin Time 13.8 Seconds (9.0-12.0)
[2018-04-19 07:32] LABS: Potassium 3.4 mmol/L (3.5-5.1)
[2018-04-19 07:33] LABS: BUN Creatinine Ratio 3.3 (10-20); Calcium 7.3 mg/dl (8.5-10.1); Creatinine Clr Calc Pharmacy 86.3 ml/min; Est GFR (African American) 107.4; Est GFR (Non-African American) 92.7; Magnesium 1.2 mg/dl (1.8-2.4)
[2018-04-19 07:54] LABS: Basophils # (auto) 0.04 K/uL (0-0.2); Basophils % (auto) 0.5 %; Eosinophils # (auto) 0.35 K/uL (0-0.5); Eosinophils % (auto) 4.7 %; Immature Granulocytes # (auto) 0.23 K/uL (0.00-0.02); Immature Granulocytes % (auto) 3.1 %; Lymphocytes # (auto) 1.89 K/uL (1.2-3.4); Lymphocytes % (auto) 25.5 %; Monocytes # (auto) 1.84 K/uL (0.11-0.59); Monocytes % (auto) 24.9 %; Neutrophils # (auto) 3.05 K/uL (1.4-6.5); Neutrophils % (auto) 41.3 %; Toxic Granulation 2+
[2018-04-19 08:00] LABS: Partial Thromboplastin Time 55.1 Seconds (21.0-31.0)
[2018-04-19] MEDS: CIPROFLOXACIN 500 MG TAB PO SCH ×2 (09:18→21:37)
[2018-04-19] MEDS: MULTIVITAMIN TAB PO SCH (09:18)
[2018-04-19] MEDS: CHOLECALCIFEROL 1,000 UNITS TAB PO SCH (09:18)
[2018-04-19] MEDS: FOLIC ACID 1 MG TAB PO SCH (09:18)
[2018-04-19] MEDS: METOPROLOL TARTRATE 25 MG TAB PO SCH ×3 (09:19→21:37)
[2018-04-19] MEDS: THIAMINE HCL 100 MG TAB PO SCH (09:19)
[2018-04-19] MEDS: CEROVITE ADV FORMULA TAB PO SCH (09:19)
[2018-04-19] MEDS: POTASSIUM CHLORIDE 10 MEQ TABCR PO SCH (09:19)
[2018-04-19] MEDS: CYANOCOBALAMIN 500 MCG TABLET (VITAMIN B-12) PO SCH (09:19)
--- NOTE | 2018-04-19 11:17 | Cardiology Progress Note ---
Date of Service April 19, 2018 Assessment & Plan (1) Paroxysmal atrial fibrillation: Telemetry continues to demonstrate paroxysmal atrial fibrillation increase metoprolol tartrate to 25 milligrams 3 times daily maintain telemetry until GI evaluation complete. Anticipate anticoagulation changed to oral form on discharge Supplement potassium for today ordered (2) LBBB (left bundle branch block): Monitor telemetry. Preserved LV systolic function. Outpatient ischemic evaluation. (3) Colitis: Colonoscopy scheduled for tomorrow (4) Alcohol use: (5) Hypokalemia: Replace as indicated. (6) Hyponatremia: (7) Hypertension: Continue beta-mulugeta as tolerated. Subjective Patient seen and examined at the bedside. No complaints this morning. Telemetry continues to demonstrate paroxysmal atrial fibrillation, asymptomatic. Notes no bleeding notes no abdominal pain notes no fevers or chills. Anticipates colonoscopy in a.m. remains on IV heparin Physical Exam 2 Vital Signs (Past 24 Hours): Last Vital Signs Temp 37.2 C 04/19/18 07:35 Pulse 60 04/19/18 07:35 Resp 16 04/19/18 07:35 BP 127/72 04/19/18 07:35 Pulse Ox 97 04/19/18 07:35 Constitutional: WD/WN, vitals as above ENMT: external ear and nose normal, oropharynx normal Neck: trachea midline, no thyromegaly Respiratory: normal respiratory effort, lungs clear to auscultation Cardiovascular: Rate/Rhythm: regular rate and regular rhythm Extremities: no edema Gastrointestinal (Abdomen): Percussion/Palpation: abdomen soft; abdomen nontender Musculoskeletal: no cyanosis or clubbing, extremities motor strength 5/5
[2018-04-19] MEDS ORDERED: POTASSIUM CHLORIDE 20 MEQ TABCR PO STA (11:27)
--- NOTE | 2018-04-19 13:17 | Gastroenterology Progress Note ---
Date of Service April 19, 2018 Subjective Continues to have mildly loose bowel movements, although continues to slowly improve. Eran PO well, denies abd pain or nausea. Remains in paroxysmal afib on IV metoprolol, although rate appears controlled by nurses notes. On exam, he is pleasant and comfortable. HEENT: oc clear, pink and moist Abd: soft and non tender Extrem: warm with 2+ pulses and without edema Labs reviewed - K 3.4, Mag 1.2, Bicarb 20, hgb stable. A/p: Diarrhea - Likely infectious colitis, likely self limited. Plan cscopy to r/o microscopic colitis, obstructing lesion tomorrow. Can use Immoidum PRN, elyte replacement per primary team. Physical Exam 2 Vital Signs (Past 24 Hours): Last Vital Signs Temp 36.9 C 04/19/18 12:08 Pulse 62 04/19/18 12:08 Resp 16 04/19/18 12:08 BP 124/73 04/19/18 12:08 Pulse Ox 95 04/19/18 12:08
--- NOTE | 2018-04-19 13:37 | Hospitalist Progress Note ---
Date of Service April 19, 2018 Assessment & Plan (1) Hyponatremia: Hyponatremia is likely secondary to loss from diarrhea Received IV fluid initially Sodium level was monitored throughout Sodium level is 136 today which is being normalized (2) Colitis: -Noted on CT ABD/pelvis -will start p.o. Cipro -Stool for C. difficile:-Negative and culture: Pending -Noted colonoscopy 08/2017-had polyps resected which were benign on biopsy -GI consulted-for colonoscopy 04/20/2018 (3) Hypokalemia: Secondary to diarrhea We will replace accordingly and monitor (4) Hypomagnesemia: -Likely secondary to GI loss with diarrhea -Replace, monitor electrolytes (5) Alcohol use: -Patient reports drinking 7 beers/day -No history of withdrawal in the past -Monitor patient closely for signs of withdrawal -Start multivitamin, folic acid, thiamine -no signs of withdrawal Placed on gabapentin protocol (6) Hypertension: -BP in the lower side Continue metoprolol but hold HCTZ and lisinopril to prevent hypotension (7) Paroxysmal atrial fibrillation: New onset Noted while on telemetry Echocardiogram: EF 55%, no valvular pathology, grade 1 diastolic dysfunction Cardiology consulted Continue metoprolol 25 mg twice daily Continue heparin drip, cardiology recommends Coumadin GI recommends to hold Coumadin until colonoscopy is completed (8) LBBB (left bundle branch block): Ischemic evaluation as an outpatient (9) DVT prophylaxis: -now on heparin drip =-Likely will need Coumadin on discharge (10) Discharge planning issues: Anticipate discharge to home medically stable Follow-up with PCP Follow-up with global sourcing manager and GI Subjective Admitted with weakness, diarrhea x 2 weeks, and new onset afib noted while admitted 04/19 Patient was seen and examined in telemetry unit Continues to have diarrhea but no bloody Denies any abdominal pain any nausea and/or vomiting Denies any chest pain, palpitation or shortness of breath Physical Exam 2 Vital Signs (Past 24 Hours): Last Vital Signs Temp 36.9 C 04/19/18 12:08 Pulse 62 04/19/18 12:08 Resp 16 04/19/18 12:08 BP 124/73 04/19/18 12:08 Pulse Ox 95 04/19/18 12:08 Constitutional: WD/WN, vitals as above Eyes: PERRL, conjunctivae normal, anicteric sclerae ENMT: external ear and nose normal, oropharynx normal Respiratory: normal respiratory effort, lungs clear to auscultation Cardiovascular: Rate/Rhythm: regular rate and regular rhythm Vessels: normal peripheral pulses Extremities: no edema Gastrointestinal (Abdomen): normal bowel sounds, soft, nontender, no hepatosplenomegaly Musculoskeletal: no cyanosis or clubbing, extremities motor strength 5/5 Skin: no rashes, warm and dry Neurologic: PERRL, EOMI, accommodation nl, no face palsy, no dysarthria Psychiatric: A+Ox3, euthymic affect Results & Data Laboratory Results Short CBC 04/19/18 Range/Units 06:54 WBC 7.40 (4.8-10.8) K/uL Hgb 11.7 L (14.0-18.0) g/dL Hct 34.3 L (42-52) % Plt Count 272 (130-400) K/uL BMP 04/19/18 06:54 Sodium 136 Potassium 3.4 L Chloride 106 Carbon Dioxide 20 L BUN 2 L Creatinine 0.67 Glucose 93 Calcium 7.3 L Medications Administered Current Inpatient Medications Acetaminophen (Tylenol) 650 mg PO Q4H PRN PRN Reason: pain/fever Stop: 05/15/18 15:20 Bisacodyl (Dulcolax) 20 mg PO ONE ONE Stop: 04/19/18 17:01 Ciprofloxacin (Cipro) 500 mg PO BID [facility] Stop: 04/25/18 15:20 Last Admin: 04/19/18 09:18 Dose: 500 mg Cyanocobalamin (Vitamin B-12) 1,000 mcg PO QAM [facility] Stop: 05/16/18 08:59 Last Admin: 04/19/18 09:19 Dose: 1,000 mcg Folic Acid (Folvite) 1 mg PO [facility] Stop: 05/15/18 15:20 Last Admin: 04/19/18 09:18 Dose: 1 mg Heparin Sodium/Dextrose (Heparin Sodium/Dextrose) 25,000 units in 500 mls @ 19 mls/hr IV .Q0M [facility]; Protocol Stop: 05/15/18 18:41 Last Titration: 04/19/18 09:00 Dose: 950 units/hr, 19 mls/hr Loperamide HCl (Imodium) 2 mg PO UD PRN PRN Reason: Diarrhea Stop: 05/16/18 16:03 Last Admin: 04/17/18 17:01 Dose: 2 mg Lorazepam (Ativan) 1 mg PO ONE PRN; Protocol PRN Reason: EtoH Withdrawal AWSS 6-10 Lorazepam (Ativan) 1 mg PO ONE PRN; Protocol PRN Reason: EtoH Withdrawal AWSS 6-10 Metoprolol Tartrate (Lopressor) 5 mg IV Q6 PRN PRN Reason: a fib with HR > 110 Stop: 05/16/18 00:00 Metoprolol Tartrate (Lopressor) 25 mg PO TID [facility] Stop: 05/19/18 13:59 Last Admin: 04/19/18 13:36 Dose: 25 mg Multivitamins (Multivitamin) 1 tab PO QAM [facility] Stop: 05/15/18 15:20 Last Admin: 04/19/18 09:18 Dose: 1 tab Multivitamins/Minerals (Multivitamin W/ Minerals) 1 tab PO QAM [facility] Stop: 05/16/18 08:59 Last Admin: 04/19/18 09:19 Dose: 1 tab Polyethylene Glycol (Miralax Powder Packet) 119 gm PO DAILY ONE Stop: 04/19/18 17:01 Polyethylene Glycol (Miralax Powder Packet) 119 gm PO DAILY ONE Stop: 04/19/18 21:01 Potassium Chloride (Klor-Con M10) 40 meq PO DAILY [facility] Stop: 05/16/18 10:44 Last Admin: 04/19/18 09:19 Dose: 40 meq Thiamine HCl (Vitamin B-1) [facility] Stop: 05/15/18 15:20 Last Admin: 04/19/18 09:19 Dose: 100 mg Vitamin D (Vitamin D3) 1,000 units PO QAM [facility] Stop: 05/16/18 08:59 Last Admin: 04/19/18 09:18 Dose: 1,000 units
[2018-04-19] MEDS ORDERED: POLYETHYLENE (MIRALAX) 17 GM PACK PO ONE ×2 (17:00→21:00)
[2018-04-19] MEDS ORDERED: BISACODYL 5 MG TABEC PO ONE (17:00)
[2018-04-20 06:16] LABS: Basophils # (auto) 0.05 K/uL (0-0.2); Basophils % (auto) 0.8 %; Eosinophils # (auto) 0.36 K/uL (0-0.5); Eosinophils % (auto) 5.9 %; Hematocrit (blood only) 35.2 % (42-52); Immature Granulocytes # (auto) 0.21 K/uL (0.00-0.02); Immature Granulocytes % (auto) 3.4 %; Lymphocytes # (auto) 1.82 K/uL (1.2-3.4); Lymphocytes % (auto) 29.9 %; Mean Corpuscular Hgb Conc 34.1 g/dL (32-36); Mean Corpuscular Volume 102.3 fL (80-100); Mean Platelet Volume 8.5 fL (7.4-10.4); Monocytes # (auto) 1.45 K/uL (0.11-0.59); Monocytes % (auto) 23.8 %; Neutrophils % (auto) 36.2 %; Platelet Count 258 K/uL (130-400); RDW Coefficient of Variation 12.3 % (11.5-14.5); RDW Standard Deviation 45.4 fL (36.4-46.3); Red Blood Count 3.44 M/uL (4.7-6.1); White Blood Count 6.09 K/uL (4.8-10.8)
[2018-04-20 06:46] LABS: Calcium 7.5 mg/dl (8.5-10.1); Creatinine Clr Calc Pharmacy 79.2 ml/min; Est GFR (African American) 103.7; Est GFR (Non-African American) 89.5; Phosphorus 2.9 mg/dl (2.5-4.9); Potassium 3.9 mmol/L (3.5-5.1)
--- NOTE | 2018-04-20 10:24 | Anesthesiology Consultation ---
Date of Service April 20, 2018 Assessment & Plan ASA ASA4 Proposed Anesthesia Risk / Benefits Reviewed With: PT / POA / Parent / Guardian, Accepts Plan and Informed Consent Obtained NPO Date Last Intake of Fluids: 04/20/18 Time Last Intake of Fluids: 00:00 Date Last Intake of Solids: 04/18/18 Time Last Intake of Solids: 21:00 History Surgery Operation Date: 04/20/18 10:45 Proposed Procedures p Colonoscopy Dr Jenny Alvarado Height/Weight Height: 5 ft 7 in Weight: 74.6 kg Allergies Allergy/AdvReac Type Severity Reaction Status Date / Time No Known Allergies Allergy Verified 04/15/18 12:31 Medications Home Medications Medication Instructions Recorded Confirmed Last Taken cyanocobalamin (vitamin B-12) 1,000 mcg PO QAM 01/20/18 04/15/18 04/15/18 [Vitamin B-12] metoprolol tartrate 25 mg PO BID 01/20/18 04/15/18 04/15/18 saw palmetto 1,200 mg PO QAM 01/20/18 04/15/18 04/15/18 vit C-vit [id number] 1 cap PO QAM 01/20/18 04/15/18 04/13/18 [Ocuvite] cholecalciferol (vitamin D3) 1,000 unit PO QAM 04/15/18 04/15/18 04/15/18 [Vitamin D3] hydrochlorothiazide 12.5 mg PO DAILY 04/15/18 04/15/18 Unknown lisinopril 5 mg PO DAILY 04/15/18 04/15/18 Unknown Active Medications Generic Name Dose Route Start Last Admin Trade Name Davidq PRN Reason Stop Dose Admin Ciprofloxacin 500 mg 04/15/18 15:21 04/19/18 21:37 Cipro PO 04/25/18 15:20 500 mg BID OLIVA Administration Cyanocobalamin 1,000 mcg 04/16/18 09:00 04/19/18 09:19 Vitamin B-12 PO 05/16/18 08:59 1,000 mcg QAM OLIVA Administration Folic Acid 1 mg 04/15/18 15:21 04/19/18 09:18 Folvite PO 05/15/18 15:20 1 mg QAM OLIVA Administration Heparin Sodium/Dextrose 25,000 units in 500 mls @ 0 mls/hr 04/15/18 18:42 00:02 Heparin Sodium/Dextrose IV 05/15/18 18:41 0 units/hr .Q0M OLIVA 0 mls/hr Titration Protocol 0 UNITS/HR Loperamide HCl 2 mg 04/16/18 16:04 04/17/18 17:01 Imodium PO 05/16/18 16:03 2 mg UD PRN Administration Diarrhea Metoprolol Tartrate 25 mg 04/19/18 14:00 04/19/18 21:37 Lopressor PO 05/19/18 13:59 25 mg TID OLIVA Administration Multivitamins 1 tab 04/15/18 15:21 04/19/18 09:18 Multivitamin PO 05/15/18 15:20 1 tab QAM OLIVA Administration Multivitamins/Minerals 1 tab 04/16/18 09:00 04/19/18 09:19 Multivitamin W/ Minerals PO 05/16/18 08:59 1 tab QAM OLIVA Administration Potassium Chloride 40 meq 04/16/18 10:45 04/19/18 09:19 Klor-Con M10 PO 05/16/18 10:44 40 meq DAILY OLIVA Administration Thiamine HCl 100 mg 04/15/18 15:21 04/19/18 09:19 Vitamin B-1 PO 05/15/18 15:20 100 mg QAM OLIVA Administration Vitamin D 1,000 units 04/16/18 09:00 04/19/18 09:18 Vitamin D3 PO 05/16/18 08:59 1,000 units QAM OLIVA Administration Beta Kodi Beta Kodi Taken Within 24 Hours: Yes Past Medical History Medical History Hypertension (Chronic) A-fib Anemia Basal cell carcinoma (BCC) in situ of skin (Inactive) Hypertension (Inactive) Rheumatic fever (Inactive) HX OF WITH MURMUR; NO CARDIOPULMONARY PHYSICAL THERAPIST Past Family History Family History Other Family history non-contributory Past Surgical History Surgical History S/P tonsillectomy and adenoidectomy (Chronic) History of appendectomy (Chronic) H/O Moh's micrographic surgery for skin cancer (Inactive) X2 History of appendectomy (Inactive) History of colonoscopy (Inactive) History of tonsillectomy and adenoidectomy (Inactive) History of tooth extraction (Inactive) WISDOM TOOTH Past Anesthesia History No Hx of Anesthesia Complications and No Family Hx of Anesthesia Complications History of PONV No Motion Sickness Screening History of Motion Sickness: No Social History Smoking Status: Never smoker Do You Dip or Chew Tobacco: No Hx Alcohol Use: Yes Alcohol type: beer alcohol intake frequency: 3 or more drinks per day Alcohol Intake Frequency Comment: 6 a day Hx Substance Use: No substance use type: does not use Exercise / Class Metabolic Activity III < 4 Walking/Shop/Light housework Physical Exam Vital Signs Last Vital Signs Temp 37.2 C 04/20/18 10:04 Pulse 86 04/20/18 10:04 Resp 16 04/20/18 10:04 BP 135/79 04/20/18 10:04 Pulse Ox 95 04/20/18 10:04 ENMT Mouth: no dentition abnormality Thyromental Distance: < 3.5 Finger Breadths Mallampati Class: II Neck normal visual inspection and trachea midline; neck extension not limited Respiratory normal respiratory effort Auscultation: lungs clear to auscultation bilaterally Cardiovascular Rate/Rhythm: regular rate and regular rhythm Heart Sounds: no murmur Vessels: no carotid bruit Neurologic moves all extremities Motor/Sensory: no sensory deficit Psychiatric Orientation: alert and oriented x 3 Testing Electrocardiogram Date: 04/18/18 Findings: + LBBB sr at 75 w/pac's Chest X-Ray Date: 04/18/18 Findings: + NAD and + cardiomegaly Echocardiogram Date: 04/16/18 EF: 50-55 Other Findings: + diastolic dysfunction (grade 1) Valvular Disease: + no significant valvular disease Laboratory Results 04/20/18 06:04 04/20/18 06:04 Blood Type A Positive 04/17/18 21:24 Antibody Screen NEGATIVE 04/17/18 21:24 PT 13.8 Seconds (9.0-12.0) H 04/19/18 06:54 INR 1.4 (0.9-1.1) H 04/19/18 06:54 APTT 55.1 Seconds (21.0-31.0) H* 04/19/18 06:54 Urine Color Yellow 04/15/18 12:10 Urine Appearance Clear (Clear) 04/15/18 12:10 Urine pH 5.5 (4.5-7.5) 04/15/18 12:10 Ur Specific [place] 1.007 (1.000-1.030) 04/15/18 12:10 Urine Protein Negative (Negative) 04/15/18 12:10 Urine Glucose (UA) Negative (Negative) 04/15/18 12:10 Urine Ketones Negative (Negative) 04/15/18 12:10 Urine Nitrite Negative (Negative) 04/15/18 12:10 Ur Leukocyte Esterase Negative (Negative) 04/15/18 12:10 04/18/18 16:51 Escherichia coli Shiga Toxins - Preliminary Stool Stool Culture - Preliminary No Salmonella isolated to date, No Shigella isolated to date, No Campylobacter jejuni isolated to date. 04/16/18 08:55 Escherichia coli Shiga Toxins - Final Stool Stool Culture - Final No Salmonella isolated, No Shigella isolated, No Campylobacter jejuni isolated.
[2018-04-20] MEDS ORDERED: ATROPINE SULFATE 0.1 MG/ML 5ML SYR IV PRN (10:32)
[2018-04-20] MEDS ORDERED: ePHEDrine sulfate 50 MG/ML AMP IV PRN (10:32)
[2018-04-20] MEDS ORDERED: MIDAZOLAM HCL 1 MG/ML 2ML VIAL ONE (11:22)
[2018-04-20] MEDS ORDERED: LIDOCAINE HCL 2% 2 ML VIAL/AMP(20MG/ML) INFIL ONE (11:43)
[2018-04-20] MEDS ORDERED: PROPOFOL IV EMULSION 10 MG/ML 20 ML VIAL IV ONE (11:43)
--- NOTE | 2018-04-20 12:02 | Anesthesiology Progress Note ---
Date of Service April 20, 2018 Anesthesia Post Procedure Vital Signs Vital Signs: Temp Pulse Pulse Resp BP BP Pulse Ox 04/20/18 10:04 37.2 C 86 16 135/79 95 04/20/18 08:09 36.8 C 68 18 117/75 96 04/20/18 04:00 37.1 C 68 18 118/75 95 04/20/18 00:18 76 04/19/18 22:54 36.4 C L 70 20 114/76 93 04/19/18 20:00 36.6 C 59 L 18 139/79 96 04/19/18 17:42 64 04/19/18 16:00 04/19/18 15:25 37.4 C 68 20 111/65 94 04/19/18 12:08 36.9 C 62 16 124/73 95 Pulse Ox 04/20/18 10:04 04/20/18 08:09 04/20/18 04:00 04/20/18 00:18 04/19/18 22:54 04/19/18 20:00 04/19/18 17:42 04/19/18 16:00 95 04/19/18 15:25 04/19/18 12:08 Notes Mental Status: alert / awake / arousable Patient Amnestic to Procedure: Yes Nausea / Vomiting: adequately controlled Pain: adequately controlled Airway Patency, RR, SpO2: stable & adequate BP & HR: stable & adequate Hydration State: stable & adequate Anesthetic Complications: no major complications apparent
--- NOTE | 2018-04-20 12:10 | GI REPORT ---
Patient Name: Juancho Brunner Procedure Date: 04/20/2018 11:33 AM Date of : 1940 Admit Type: Inpatient Age: 77 Gender: Male Attending MD: Bronwyn Alvarado MD Procedure: Colonoscopy Providers: Bronwyn Alvarado MD Referring MD: Avani Solares Indications: Chronic diarrhea Medicines: See the Anesthesia note for documentation of the administered medications Complications: No immediate complications. Estimated Blood Loss: Estimated blood loss: none. Procedure: Pre-Anesthesia Assessment: - ASA Grade Assessment: IV - A patient with severe systemic disease that is a constant threat to life. After I obtained informed consent, the scope was passed under direct vision. Throughout the procedure, the patient's blood pressure, pulse, and oxygen saturations were monitored continuously. The Colonoscope was introduced through the anus with the intention of advancing to the ileum. The scope was advanced to the descending colon before the procedure was aborted. Medications were given. The patient tolerated the procedure well. The quality of the bowel preparation was good. Findings: The perianal and digital rectal examinations were normal. A few small-mouthed diverticula were found in the sigmoid colon. There was severe colitis in the examined portion of the colon. The entire examined colon mucosa was granular, red, and covered in exudate. There was marked friability with contact bleeding of the colon mucosa. There was marked edema of the descending colon, with luminal narrowing; due to this, the scope could not be advanced beyond the descending colon. Random biopsies and a stool aspirate were done. Impression: - Diverticulosis in the sigmoid colon. - Severe colitis extending from rectum to descending colon; exam aborted due to colitis. Differential for colitis includes acute infectious gastroenteritis, C diff, or ulcerative colitis. Recommendation: - Discharge patient to floor. Low residue diet as tolerated. D/c Immodium. If stool aspirate neg for C diff, consider initiation of steroids for IBD. Bronwyn Alvarado M.D. Bronwyn Alvarado MD 04/20/2018 12:10:11 PM This report has been signed electronically. Note Initiated On: 04/20/2018 11:33 AM Number of Addenda: 0 I attest to the content of the Intraoperative Record and orders documented therein, exceptions below {[id number]}
[2018-04-20] MEDS: CEROVITE ADV FORMULA TAB PO SCH (13:14)
[2018-04-20] MEDS: CHOLECALCIFEROL 1,000 UNITS TAB PO SCH (13:14)
[2018-04-20] MEDS: MULTIVITAMIN TAB PO SCH (13:14)
[2018-04-20] MEDS: POTASSIUM CHLORIDE 10 MEQ TABCR PO SCH (13:15)
[2018-04-20] MEDS: CIPROFLOXACIN 500 MG TAB PO SCH ×2 (13:15→20:21)
[2018-04-20] MEDS: FOLIC ACID 1 MG TAB PO SCH (13:15)
[2018-04-20] MEDS: METOPROLOL TARTRATE 25 MG TAB PO SCH ×3 (13:16→21:29)
[2018-04-20] MEDS: THIAMINE HCL 100 MG TAB PO SCH (13:16)
[2018-04-20] MEDS: CYANOCOBALAMIN 500 MCG TABLET (VITAMIN B-12) PO SCH (13:16)
[2018-04-20] MEDS ORDERED: HEPARIN SODIUM/DEXTROSE 25,000 UNITS/500 ML BAG IV SCH (14:20)
[2018-04-20] MEDS: HEPARIN LOW DOSE DEXTROSE 25,000 UNITS/500 ML IV SCH ×2 (14:42→21:29)
--- NOTE | 2018-04-20 15:25 | Hospitalist Progress Note ---
Date of Service April 20, 2018 Assessment & Plan (1) Hyponatremia: Hyponatremia is likely secondary to loss from diarrhea Received IV fluid initially Sodium level was monitored throughout Sodium level is 136 today which is being normalized Sodium level remains stable (2) Colitis: -Noted on CT ABD/pelvis -will start p.o. Cipro -Stool for C. difficile:-Negative and culture: Pending -Noted colonoscopy 08/2017-had polyps resected which were benign on biopsy -GI consulted-for colonoscopy 04/20/2018 -Status post colonoscopy which showed inflammatory colitis likely secondary to UC to rule out C. difficile colitis (3) Hypokalemia: Secondary to diarrhea We will replace accordingly and monitor (4) Hypomagnesemia: -Likely secondary to GI loss with diarrhea -Replace, monitor electrolytes (5) Alcohol use: -Patient reports drinking 7 beers/day -No history of withdrawal in the past -Monitor patient closely for signs of withdrawal -Start multivitamin, folic acid, thiamine -no signs of withdrawal Placed on gabapentin protocol (6) Hypertension: -BP in the lower side Continue metoprolol but hold HCTZ and lisinopril to prevent hypotension (7) Paroxysmal atrial fibrillation: New onset Noted while on telemetry Echocardiogram: EF 55%, no valvular pathology, grade 1 diastolic dysfunction Cardiology consulted Continue metoprolol 25 mg twice daily Continue heparin drip, cardiology recommends Coumadin GI recommends to hold Coumadin until colonoscopy is completed We will restart heparin and Coumadin (8) LBBB (left bundle branch block): Ischemic evaluation as an outpatient (9) DVT prophylaxis: -now on heparin drip =-Likely will need Coumadin on discharge (10) Discharge planning issues: Anticipate discharge to home medically stable Follow-up with PCP Follow-up with set up mechanic and GI Likely discharge when diarrhea is controlled Subjective Admitted with weakness, diarrhea x 2 weeks, and new onset afib noted while admitted 04/19 Patient was seen and examined in telemetry unit Continues to have diarrhea but no bloody Denies any abdominal pain any nausea and/or vomiting Denies any chest pain, palpitation or shortness of breath 04/20 Patient was seen and examined in telemetry Denies any symptoms today Diarrhea seems to be controlled Hemoglobin is stable Physical Exam 2 Vital Signs (Past 24 Hours): Last Vital Signs Temp 37.2 C 04/20/18 10:04 Pulse 105 H 04/20/18 12:28 Resp 16 04/20/18 12:28 BP 126/76 04/20/18 12:28 Pulse Ox 96 04/20/18 12:28 Constitutional: WD/WN, vitals as above Eyes: PERRL, conjunctivae normal, anicteric sclerae ENMT: external ear and nose normal, oropharynx normal Respiratory: normal respiratory effort, lungs clear to auscultation Cardiovascular: Rate/Rhythm: regular rate and regular rhythm Vessels: normal peripheral pulses Extremities: no edema Gastrointestinal (Abdomen): normal bowel sounds, soft, nontender, no hepatosplenomegaly Musculoskeletal: no cyanosis or clubbing, extremities motor strength 5/5 Skin: no rashes, warm and dry Neurologic: PERRL, EOMI, accommodation nl, no face palsy, no dysarthria Psychiatric: A+Ox3, euthymic affect Results & Data Laboratory Results Short CBC 04/20/18 Range/Units 06:04 WBC 6.09 (4.8-10.8) K/uL Hgb 12.0 L (14.0-18.0) g/dL Hct 35.2 L (42-52) % Plt Count 258 (130-400) K/uL [facility] 04/20/18 06:04 Sodium 134 L Potassium 3.9 Chloride 104 Carbon Dioxide 24 BUN 2 L Creatinine 0.73 Glucose 84 Calcium 7.5 L Medications Administered Current Inpatient Medications Acetaminophen (Tylenol) 650 mg PO Q4H PRN PRN Reason: pain/fever Stop: 05/15/18 15:20 Atropine Sulfate (Atropine Sulfate) 0.5 mg IV Q1M PRN PRN Reason: PACU Use-HR<40 &/or Bradycardi Stop: 04/20/18 15:32 Ciprofloxacin (Cipro) 500 mg PO BID [facility] Stop: 04/25/18 15:20 Last Admin: 04/20/18 13:15 Dose: 500 mg Cyanocobalamin (Vitamin B-12) 1,000 mcg PO QAM [facility] Stop: 05/16/18 08:59 Last Admin: 04/20/18 13:16 Dose: 1,000 mcg Ephedrine Sulfate (Ephedrine Sulfate) 5 mg IV Q5M PRN PRN Reason: PACU Use Only-SBP<90 mmHg Stop: 04/20/18 15:32 Folic Acid (Folvite) 1 mg PO QAM [facility] Stop: 05/15/18 15:20 Last Admin: 04/20/18 13:15 Dose: 1 mg Heparin Sodium/Dextrose (Heparin Sodium/Dextrose) 25,000 units in 500 mls @ 19 mls/hr IV .Q24H [facility]; Protocol Stop: 05/20/18 14:34 Last Titration: 04/20/18 15:11 Dose: 950 units/hr, 19 mls/hr Lorazepam (Ativan) 1 mg PO ONE PRN; Protocol PRN Reason: EtoH Withdrawal AWSS 6-10 Lorazepam (Ativan) 1 mg PO ONE PRN; Protocol PRN Reason: EtoH Withdrawal AWSS 6-10 Metoprolol Tartrate (Lopressor) 5 mg IV Q6 PRN PRN Reason: a fib with HR > 110 Stop: 05/16/18 00:00 Metoprolol Tartrate (Lopressor) 25 mg PO TID [facility] Stop: 05/19/18 13:59 Last Admin: 04/20/18 13:41 Dose: Not Given [facility]ivit[facility] ([facility]itamin) [facility] [place] Stop: 05/15/18 15:20 Last Admin: 04/20/18 13:14 Dose: 1 tab Multivitamins/Minerals (Multivitamin W/ Minerals) 1 tab PO QAM [facility] Stop: 05/16/18 08:59 Last Admin: 04/20/18 13:14 Dose: 1 tab Potassium Chloride (Klor-Con M10) 40 meq PO DAILY [facility] Stop: 05/16/18 10:44 Last Admin: 04/20/18 13:15 Dose: 40 meq Thiamine HCl (Vitamin B-1) [facility] [place] Stop: 05/15/18 15:20 Last Admin: 04/20/18 13:16 Dose: 100 mg Vitamin D (Vitamin D3) 1,000 units PO QAM [facility] Stop: 05/16/18 08:59 Last Admin: 04/20/18 13:14 Dose: 1,000 units
[2018-04-21 06:35] LABS: Partial Thromboplastin Ratio 2.1
[2018-04-21 06:44] LABS: Partial Thromboplastin Time 53.8 Seconds (21.0-31.0)
[2018-04-21] MEDS ORDERED: SAW PALMETTO 1200 MG PO SCH (09:00)
--- NOTE | 2018-04-21 09:07 | Gastroenterology Progress Note ---
Date of Service April 21, 2018 Assessment & Plan (1) Colitis: (2) Diarrhea: 77 year old male admitted w/ weakness, found to have new Afib, hypokalemic , hyponatremic w/ ongoing diarrhea and stool incontinence, nocturnal awakening x [address] abd/pelvis w colitis, non specific. Stool cx and Cdiff negative. FOBT positive. Last colonoscopy 08/2017 w findings of adenomatous polyps. Now S/ P colonoscopy w/ severe colitis - repeat c.diff negative but culture pending - Low reside diet as tolerated - Follow up stool culture when resulted - Follow up pathology - Will defer starting steroids/mesalamine until final cultures result - GI to follow. Thank you for allowing us to participate in the care of this patient. Please call with any acute changes, questions or concerns. Please see addendum below with additional recommendation from my supervising physician. Attg add: I interviewed and examined pt, reviewed chrt and labs. Pt with some mild improvement in diarrhea; denies pain; salma PO. Clinical picture, and biopsies, suggest infectious colitis (shiga toxin?), although IBD remains a possibility. For now, defer steroids, adv diet to lwo residue, and follow clinical exam. Subjective Continues to have liquid bowel movements, notes these are less often. No abdominal pain. No nausea, vomiting. He is tolerating PO, only on clear liquids and is hungry. Wants to go home. Denies fever, chills, CP, SOB. c.diff negative x 3 stool culture negative shiga toxin pending Colonoscopy 04/20/18: Diverticulosis in the sigmoid colon. Severe colitis extending from rectum to descending colon; exam aborted due to colitis. Differential for colitis includes acute infectious gastroenteritis, C diff, or ulcerative colitis. Constitutional: as per Subjective / HPI; no fever, no chills and no weakness Respiratory: no cough, no dyspnea and no wheezing Cardiovascular: no chest pain, no dyspnea on exertion and no claudication Gastrointestinal: + diarrhea/loose stools; no abdominal pain, no coffee ground emesis, no dysphagia, no change in bowel habits, no blood in stools and no melena Physical Exam 2 Vital Signs (Past 24 Hours): Last Vital Signs Temp 36.8 C 04/21/18 07:33 Pulse 78 04/21/18 07:33 Resp 20 04/21/18 07:33 BP 109/72 04/21/18 07:33 Pulse Ox 94 04/21/18 07:33 Constitutional: well developed, well nourished, cooperative and comfortable; no acute distress Respiratory: normal respiratory effort, lungs clear to auscultation Gastrointestinal (Abdomen): normal bowel sounds, soft, nontender, no hepatosplenomegaly Skin: no rashes, warm and dry Results & Data Laboratory Results 04/21/18 04/20/18 Range/Units 05:45 11:48 APTT 53.8 H* (21.0-31.0) Seconds PTT Ratio 2.1 Stl C. diff Tox B Gene Neg C.diff Toxin B (Neg)
[2018-04-21] MEDS: POTASSIUM CHLORIDE 10 MEQ TABCR PO SCH (09:17)
[2018-04-21] MEDS: CYANOCOBALAMIN 500 MCG TABLET (VITAMIN B-12) PO SCH (09:18)
[2018-04-21] MEDS: THIAMINE HCL 100 MG TAB PO SCH (09:19)
[2018-04-21] MEDS: LISINOPRIL 5 MG TAB PO SCH (09:19)
[2018-04-21] MEDS: CHOLECALCIFEROL 1,000 UNITS TAB PO SCH (09:19)
[2018-04-21] MEDS: FOLIC ACID 1 MG TAB PO SCH (09:19)
[2018-04-21] MEDS: METOPROLOL TARTRATE 25 MG TAB PO SCH ×3 (09:19→17:36)
[2018-04-21] MEDS: MULTIVITAMIN TAB PO SCH (09:20)
[2018-04-21] MEDS: CIPROFLOXACIN 500 MG TAB PO SCH ×2 (09:20→20:48)
[2018-04-21] MEDS: CEROVITE ADV FORMULA TAB PO SCH (09:20)
--- NOTE | 2018-04-21 15:49 | Cardiology Progress Note ---
Date of Service April 21, 2018 Assessment & Plan (1) Paroxysmal atrial fibrillation: ECGs document sinus rhythm with frequent PACs, however, review of telemetry reveals bursts of atrial fibrillation versus atrial tachycardia. Patient asymptomatic. Increase metoprolol to 25 mg 4 times daily. Anticoagulation will be placed on hold due to evidence of severe colitis with friable mucosa. At this time bleeding risk outweighs benefit. Reassessment of underlying rhythm will be performed in the outpatient setting with 14-30-day monitor. (2) LBBB (left bundle branch block): Monitor telemetry. Preserved LV systolic function. Outpatient ischemic evaluation. (3) Colitis: Appreciate gastroenterology input. (4) Alcohol use: (5) Hypokalemia: Replace as indicated. (6) Hyponatremia: Continue intravenous hydration with normal saline. Repeat basic metabolic panel daily. (7) Hypertension: Borderline resting hypotension on admission. Continue intravenous hydration. Continue beta-mulugeta as tolerated. Subjective Patient seen and examined at the bedside. Colonoscopy demonstrated severe colitis with friable mucosa. Patient reports recurrent diarrhea today. No chest pain or shortness of breath. Telemetry demonstrates predominantly sinus rhythm with left bundle branch block, frequent PACs, as well as runs of paroxysmal atrial tachycardia. Denies palpitations. Review of Systems All systems reviewed & are unremarkable except as noted in HPI & below Physical Exam 2 Vital Signs (Past 24 Hours): Last Vital Signs Temp 36.9 C 04/21/18 15:28 Pulse 75 04/21/18 15:28 Resp 18 04/21/18 15:28 BP 106/69 04/21/18 15:28 Pulse Ox 94 04/21/18 15:28 Physical Exam: General: NAD, AAO x3, well nourished. Poor short-term memory. HEENT: Normocephalic. Atraumatic. Conjunctiva pink, no scleral icterus. Neck: No carotid bruits, the carotid upstrokes are brisk. No JVD. No HJR Heart: Irregular rhythm, normal S-1 and S-2 no S-3 or S-4 gallop. No murmurs or rub appreciated. PMI is not displaced. No RV heave. Lungs: Clear bilateral without rales , rhonchi, or wheeze. Abdomen: Mildly distended, nontender.Normal bowel sounds. No masses or organomegaly. No abdominal bruits. Extremities: No clubbing, cyanosis, or edema. Pulses: radial=2/4, Dorsalis pedis =2/4, posterior tibial=2/4. Neuro: Cranial nerves grossly intact. No focal motor deficit.
[2018-04-22] MEDS: METOPROLOL TARTRATE 25 MG TAB PO SCH ×2 (00:25→06:01)
[2018-04-22] MEDS: ACETAMINOPHEN 325 MG TAB PO PRN ×2 (00:28→06:09)
[2018-04-22] MEDS: MULTIVITAMIN TAB PO SCH (07:40)
[2018-04-22] MEDS: POTASSIUM CHLORIDE 10 MEQ TABCR PO SCH (07:40)
[2018-04-22] MEDS: CEROVITE ADV FORMULA TAB PO SCH (07:40)
[2018-04-22] MEDS: CHOLECALCIFEROL 1,000 UNITS TAB PO SCH (07:40)
[2018-04-22] MEDS: CIPROFLOXACIN 500 MG TAB PO SCH (07:41)
[2018-04-22] MEDS: FOLIC ACID 1 MG TAB PO SCH (07:41)
[2018-04-22] MEDS: CYANOCOBALAMIN 500 MCG TABLET (VITAMIN B-12) PO SCH (07:42)
[2018-04-22] MEDS: THIAMINE HCL 100 MG TAB PO SCH (07:42)
[2018-04-22] MEDS: LISINOPRIL 5 MG TAB PO SCH (07:44)
--- NOTE | 2018-04-22 09:28 | Gastroenterology Progress Note ---
Date of Service April 22, 2018 Assessment & Plan (1) Colitis: (2) Diarrhea: 77 year old male admitted w/ weakness, found to have new Afib, hypokalemic , hyponatremic w/ ongoing diarrhea and stool incontinence, nocturnal awakening x [address] abd/pelvis w colitis, non specific. Stool cx and Cdiff negative. FOBT positive. Last colonoscopy 08/2017 w findings of adenomatous polyps. Now S/ P colonoscopy w/ severe colitis - repeat c.diff negative but culture negative to date. Path consistent with acute infectious process, less like acute IBD. - Low reside diet as tolerated - Follow up stool culture when resulted - Would complete full course of cipro as started on admission - Will defer starting steroids/mesalamine until final cultures result - Will need close OP GI follow up - He wants to follow up with Dr. Alvarado - GI to follow. Thank you for allowing us to participate in the care of this patient. Please call with any acute changes, questions or concerns. Please see addendum below with additional recommendation from my supervising physician. Subjective Pt was seen and evaluated, chart reviewed. Continues to have liquid bowel movements, notes these are less often. Has had 2 BM this AM. No abdominal pain. No nausea, vomiting. He is tolerating PO, only on clear liquids and is hungry. Wants to go home. Denies fever, chills, CP, SOB. c.diff negative x 3 stool culture negative x 3 shiga toxin pending path w/ concern for acute infectious process vs less likely acute IBD Colonoscopy 04/20/18: Diverticulosis in the sigmoid colon. Severe colitis extending from rectum to descending colon; exam aborted due to colitis. Differential for colitis includes acute infectious gastroenteritis, C diff, or ulcerative colitis. Constitutional: as per Subjective / HPI; no fever, no chills and no weakness Respiratory: no cough, no dyspnea and no wheezing Cardiovascular: no chest pain, no radiating jaw, neck or arm pain and no claudication Gastrointestinal: + diarrhea/loose stools; no abdominal pain, no coffee ground emesis, no dysphagia, no change in bowel habits, no blood in stools and no melena Physical Exam 2 Vital Signs (Past 24 Hours): Last Vital Signs Temp 36.4 C L 04/22/18 07:07 Pulse 68 04/22/18 07:45 Resp 18 04/22/18 07:07 BP 111/66 04/22/18 07:39 Pulse Ox 96 04/22/18 07:07 Constitutional: well developed, well nourished, cooperative and comfortable; no acute distress Respiratory: normal respiratory effort, lungs clear to auscultation Gastrointestinal (Abdomen): normal bowel sounds, soft, nontender, no hepatosplenomegaly Skin: no rashes, warm and dry Results & Data Laboratory Results No new labs.
[2018-04-22] MEDS ORDERED: METOPROLOL SUCC 50MG EXT REL TAB PO SCH (11:15)
--- NOTE | 2018-04-22 11:17 | Cardiology Progress Note ---
Date of Service April 22, 2018 Assessment & Plan (1) Paroxysmal atrial fibrillation: No recurrent atrial fibrillation or atrial tachycardia overnight. Will hold anticoagulation at this time with evidence of severe colitis per colonoscopy. Recommend outpatient follow-up. Toprol tartrate will be transitioned to Toprol-XL 50 mg twice daily. No further inpatient cardiac testing at this time. Cardiology will sign off. Please call with questions. (2) Atrial tachycardia: As above. (3) LBBB (left bundle branch block): Monitor telemetry. Preserved LV systolic function. Outpatient ischemic evaluation. (4) Hypertension: Controlled. Continue current medications. (5) Colitis: Gastroenterology input appreciated. (6) Alcohol use: Subjective Patient seen and examined at the bedside. No recurrent diarrhea overnight. Currently sinus rhythm on telemetry. No recurrent atrial tachycardia or atrial fibrillation. Tolerating beta-mulugeta therapy. Denies palpitations. No signs/ symptoms of GI/ blood loss. Review of Systems All systems reviewed & are unremarkable except as noted in HPI & below Physical Exam 2 Vital Signs (Past 24 Hours): Last Vital Signs Temp 36.4 C L 04/22/18 07:07 Pulse 71 04/22/18 08:00 Resp 18 04/22/18 07:07 BP 111/66 04/22/18 07:39 Pulse Ox 96 04/22/18 07:07 Physical Exam: General: NAD, AAO x3, well nourished. HEENT: Normocephalic. Atraumatic. Conjunctiva pink, no scleral icterus. Neck: No carotid bruits, the carotid upstrokes are brisk. No JVD. No HJR Heart: Regular normal S-1 and S-2 no S-3 or S-4 gallop. No murmurs or rub appreciated. PMI is not displaced. No RV heave. Lungs: Clear bilateral without rales , rhonchi, or wheeze. Abdomen: Normal bowel sounds. Soft. Nontender. No masses or organomegaly. No abdominal bruits. Extremities: No clubbing, cyanosis, or edema. Pulses: radial=2/4, Dorsalis pedis =2/4, posterior tibial=2/4. Neuro: Cranial nerves grossly intact. No focal motor deficit. _ (1) Hypertension Hypertension type: essential hypertension Qualified Code(s): I10 - Essential (primary) hypertension
[2018-04-22 11:26] VITALS: TEMP 97.9; O2SAT 95
--- NOTE | 2018-04-22 11:38 | Hospitalist Progress Note ---
Date of Service April 22, 2018 Assessment & Plan (1) Hyponatremia: Hyponatremia is likely secondary to loss from diarrhea Received IV fluid initially Sodium level was monitored throughout Sodium level is 136 today which is being normalized Sodium level remains stable at 134 (2) Colitis: -Noted on CT ABD/pelvis -will start p.o. Cipro -Stool for C. difficile:-Negative and culture: Pending -Noted colonoscopy 08/2017-had polyps resected which were benign on biopsy -GI consulted-for colonoscopy 04/20/2018 -Status post colonoscopy which showed inflammatory colitis likely secondary to UC to rule out C. difficile colitis -Stool culture for E. coli Shiga toxin still pending -GI is holding for use of any steroid right now (3) Hypokalemia: Secondary to diarrhea We will replace accordingly and monitor (4) Hypomagnesemia: -Likely secondary to GI loss with diarrhea -Replace, monitor electrolytes -Corrected (5) Alcohol use: -Patient reports drinking 7 beers/day -No history of withdrawal in the past -Monitor patient closely for signs of withdrawal -Start multivitamin, folic acid, thiamine -no signs of withdrawal Placed on gabapentin protocol (6) Hypertension: -BP in the lower side Continue metoprolol but hold HCTZ and lisinopril to prevent hypotension (7) Paroxysmal atrial fibrillation: New onset Noted while on telemetry Echocardiogram: EF 55%, no valvular pathology, grade 1 diastolic dysfunction Cardiology consulted Continue metoprolol 25 mg twice daily Continue heparin drip, cardiology recommends Coumadin GI recommends to hold Coumadin until colonoscopy is completed Discussed with interior block wirer Given the findings on colonoscopy with severe inflammatory colitis will not give any anticoagulation at this time Heart rate is controlled with beta-mulugeta Discharge home this afternoon (8) LBBB (left bundle branch block): Ischemic evaluation as an outpatient (9) DVT prophylaxis: -now on heparin drip =-Likely will need Coumadin on discharge -No anticoagulation on discharge (10) Discharge planning issues: Anticipate discharge to home medically stable Follow-up with PCP Follow-up with interior block wirer and GI Likely discharge when diarrhea is controlled Subjective Admitted with weakness, diarrhea x 2 weeks, and new onset afib noted while admitted 04/19 Patient was seen and examined in telemetry unit Continues to have diarrhea but no bloody Denies any abdominal pain any nausea and/or vomiting Denies any chest pain, palpitation or shortness of breath 04/20 Patient was seen and examined in telemetry Denies any symptoms today Diarrhea seems to be controlled Hemoglobin is stable 04/22 Patient was seen and examined in telemetry unit Still has diarrhea but no abdominal pain nausea and/or vomiting Heart rate remains controlled Wants to go home today Physical Exam 2 Vital Signs (Past 24 Hours): Last Vital Signs Temp 36.6 C 04/22/18 11:25 Pulse 74 04/22/18 11:25 Resp 18 04/22/18 11:25 BP 103/63 04/22/18 11:25 Pulse Ox 95 04/22/18 11:25 Constitutional: WD/WN, vitals as above Eyes: PERRL, conjunctivae normal, anicteric sclerae ENMT: external ear and nose normal, oropharynx normal Respiratory: normal respiratory effort, lungs clear to auscultation Cardiovascular: Rate/Rhythm: regular rate and regular rhythm Vessels: normal peripheral pulses Extremities: no edema Gastrointestinal (Abdomen): normal bowel sounds, soft, nontender, no hepatosplenomegaly Inspection/Auscultation: normal bowel sounds Percussion /Palpation: abdomen soft; abdomen nontender Musculoskeletal: no cyanosis or clubbing, extremities motor strength 5/5 Skin: no rashes, warm and dry Neurologic: PERRL, EOMI, accommodation nl, no face palsy, no dysarthria Psychiatric: A+Ox3, euthymic affect Results & Data Medications Administered Current Inpatient Medications Acetaminophen (Tylenol) 650 mg PO Q4H PRN PRN Reason: pain/fever Stop: 05/15/18 15:20 Last Admin: 04/22/18 06:09 Dose: 650 mg Ciprofloxacin (Cipro) 500 mg PO BID [facility] Stop: 04/25/18 15:20 Last Admin: 04/22/18 07:41 Dose: 500 mg Cyanocobalamin (Vitamin B-12) 1,000 mcg PO QAM [facility] Stop: 05/16/18 08:59 Last Admin: 04/22/18 07:42 Dose: 1,000 mcg Folic Acid (Folvite) 1 mg PO QAM [facility] Stop: 05/15/18 15:20 Last Admin: 04/22/18 07:41 Dose: 1 mg Lisinopril (Zestril) 5 mg PO DAILY [facility] Stop: 05/21/18 08:59 Last Admin: 04/22/18 07:44 Dose: 5 mg Lorazepam (Ativan) 1 mg PO ONE PRN; Protocol PRN Reason: EtoH Withdrawal AWSS 6-10 Lorazepam (Ativan) 1 mg PO ONE PRN; Protocol PRN Reason: EtoH Withdrawal AWSS 6-10 Metoprolol Succinate (Toprol Xl) 50 mg PO BID [facility] Stop: 05/22/18 11:14 Metoprolol Tartrate (Lopressor) 5 mg IV Q6 PRN PRN Reason: a fib with HR > 110 Stop: 05/16/18 00:00 Multivitamins (Multivitamin) 1 tab PO QAM [facility] Stop: 05/15/18 15:20 Last Admin: 04/22/18 07:40 Dose: 1 tab Multivitamins/Minerals (Multivitamin W/ Minerals) [facility] [place] Stop: 05/16/18 08:59 Last Admin: 04/22/18 07:40 Dose: 1 tab Potassium Chloride (Klor-Con M10) 40 meq PO DAILY [facility] Stop: 05/16/18 10:44 Last Admin: 04/22/18 07:40 Dose: 40 meq Thiamine HCl (Vitamin B-1) [facility] [place] Stop: 05/15/18 15:20 Last Admin: 04/22/18 07:42 Dose: 100 mg Vitamin D (Vitamin D3) 1,000 units PO [facility] Stop: 05/16/18 08:59 Last Admin: 04/22/18 07:40 Dose: 1,000 units _ (1) Hypertension Hypertension type: essential hypertension Qualified Code(s): I10 - Essential (primary) hypertension
[2018-04-22 12:08] VITALS: PULSE 75
[2018-04-22 13:34] VITALS: BP 103/63
--- NOTE | 2018-04-23 08:12 | Discharge Summary ---
Date of Service April 23, 2018 Admission HPI Per Admitting Provider 77-year-old male who presents to the ED with generalized weakness. Patient reports symptoms of been going on for the past 2 weeks. Patient reports he is typically very active however he has been sleeping up to 20 hours a day. He reports some intermittent lightheadedness and dizziness but denies any syncopal events. He reports a very poor appetite over the past couple of weeks as well however denies abdominal pain, nausea, vomiting. He reports diarrhea for the past 2 weeks as well. No bright red bleeding per rectum or dark tarry stools. He denies fevers and chills. No chest pain or shortness of breath. He denies any urinary symptoms. Of note, patient reports he was [facility] ([facility] to determine [facility] medicine was hydrochlorothiazide 12.5 mg daily). In the ED, CT ABD/pelvis is showing an acute nonspecific colitis. Labs show Na+ 126, K+ 3.1, Mg +1.4. He was given IVF and 1 potassium rider. Admission Exam Per Admitting Provider Vital Signs (Past 24 Hours): Last Vital Signs Temp 37.3 C 04/15/18 15:04 Pulse 92 H 04/15/18 15:04 Resp 20 04/15/18 14:24 BP 133/76 04/15/18 15:04 Pulse Ox 98 04/15/18 15:04 Constitutional: WD/WN, vitals as above Eyes: PERRL, conjunctivae normal, anicteric sclerae ENMT: external ear and nose normal, oropharynx normal Respiratory: normal respiratory effort, lungs clear to auscultation Cardiovascular: Rate/Rhythm: regular rate and regular rhythm Vessels: normal peripheral pulses Extremities: no edema Gastrointestinal (Abdomen): normal bowel sounds, soft, nontender, no hepatosplenomegaly Musculoskeletal: no cyanosis or clubbing, extremities motor strength 5/5 Skin: no rashes, warm and dry Neurologic: PERRL, EOMI, accommodation nl, no face palsy, no dysarthria Psychiatric: A+Ox3, euthymic affect Principal Diagnosis Inflammatory/infective colitis Atrial fibrillation Discharge Exam Constitutional WD/WN, vitals as above Eyes PERRL, conjunctivae normal, anicteric sclerae ENMT external ear and nose normal, oropharynx normal Respiratory normal respiratory effort, lungs clear to auscultation Cardiovascular Rate/Rhythm: regular rate and regular rhythm Vessels: normal peripheral pulses Extremities: no edema Gastrointestinal (Abdomen) normal bowel sounds, soft, nontender, no hepatosplenomegaly Inspection/Auscultation: normal bowel sounds Percussion/Palpation: abdomen soft; abdomen nontender Musculoskeletal no cyanosis or clubbing, extremities motor strength 5/5 Skin no rashes, warm and dry Neurologic PERRL, EOMI, accommodation nl, no face palsy, no dysarthria Psychiatric A+Ox3, euthymic affect Discharge Data Allergies Allergy/AdvReac Type Severity Reaction Status Date / Time No Known Allergies Allergy Verified 04/15/18 12:31 Consultations 04/15/18 13:20 ED Decision to Admit Stat 04/15/18 18:27 Consult Cardiology Routine 04/17/18 17:43 Consult Gastroenterology Routine Procedures Performed Operation Date: 04/20/18 10:45 Actual Procedures p Colonoscopy Biopsy Cytology(Left) - Irphan E Gaslightwala Ordered Studies 04/15/18 11:46 CT head/brain wo con Stat 04/15/18 13:21 CT abd pelvis wo con Stat Hospital Course (1) Hyponatremia: Hyponatremia is likely secondary to loss from diarrhea Received IV fluid initially Sodium level was monitored throughout Sodium level is 136 today which is being normalized Sodium level remains stable at 134 (2) Colitis: -Noted on CT ABD/pelvis -will start p.o. Cipro -Stool for C. difficile:-Negative and culture: Pending -Noted colonoscopy 08/2017-had polyps resected which were benign on biopsy -GI consulted-for colonoscopy 04/20/2018 -Status post colonoscopy which showed inflammatory colitis likely secondary to UC to rule out C. difficile colitis -Stool culture for E. coli Shiga toxin still pending -GI is holding for use of any steroid right now (3) Hypokalemia: Secondary to diarrhea We will replace accordingly and monitor (4) Hypomagnesemia: -Likely secondary to GI loss with diarrhea -Replace, monitor electrolytes -Corrected (5) Alcohol use: -Patient reports drinking 7 beers/day -No history of withdrawal in the past -Monitor patient closely for signs of withdrawal -Start multivitamin, folic acid, thiamine -no signs of withdrawal Placed on gabapentin protocol (6) Hypertension: -BP in the lower side Continue metoprolol but hold HCTZ and lisinopril to prevent hypotension (7) Paroxysmal atrial fibrillation: New onset Noted while on telemetry Echocardiogram: EF 55%, no valvular pathology, grade 1 diastolic dysfunction Cardiology consulted Continue metoprolol 25 mg twice daily Continue heparin drip, cardiology recommends Coumadin GI recommends to hold Coumadin until colonoscopy is completed Discussed with fans clerk Given the findings on colonoscopy with severe inflammatory colitis will not give any anticoagulation at this time Heart rate is controlled with beta-mulugeta Discharge home this afternoon (8) LBBB (left bundle branch block): Ischemic evaluation as an outpatient (9) DVT prophylaxis: -now on heparin drip =-Likely will need Coumadin on discharge -No anticoagulation on discharge (10) Discharge planning issues: Anticipate discharge to home medically stable Follow-up with PCP Follow-up with fans clerk and GI Likely discharge when diarrhea is controlled Total Time Total Time Spent Total Time Spent (In Minutes): 35 minutes Total Time Includes: Examination of the Patient, Discharge Planning, Medication Reconciliation and Communication With Other Providers Discharge Plan Discharge Items Patient Disposition: Home - Self-Care Reason For Visit: WEAKNESS, DISORIENTED Discharge Diagnosis: Inflammatory/infective colitis Atrial fibrillation Condition: Fair Discharge Goals: Decrease discomfort, Improve disease control and Improve function Activity: Resume your previous activity Non-emergency contact: Primary Care Provider Call non-emergency contact if: you have any medication questions and your symptoms worsen Follow-up/Referrals: Chevy Bhatti MD [Primary Care Provider] - 04/27/18 12:45 pm (Please make an appointment with Dr. Alvarado in 1-2 weeks) Diet: Heart Healthy Add Provider Instructions: Need to have follow-up with Dr. Alvarado in 1-2 weeks Prescriptions: New metoprolol succinate 50 mg Tablet Extended Release 24 Hr 50 mg PO BID 30 Days Qty: 60 RF: 0 thiamine HCl (vitamin B1) [Vitamin B-1] 100 mg Tablet 100 mg PO QAM 30 Days Qty: 30 RF: 0 ciprofloxacin HCl 500 mg Tablet 500 mg PO BID 5 Days Qty: 10 RF: 0 folic acid 1 mg Tablet 1 mg PO QAM 30 Days Qty: 30 RF: 0 Continue cholecalciferol (vitamin D3) [Vitamin D3] 1,000 unit Tablet 1,000 unit PO QAM RF: 0 lisinopril 5 mg Tablet 5 mg PO DAILY RF: 0 cyanocobalamin (vitamin B-12) [Vitamin B-12] 1,000 mcg Tablet 1,000 mcg PO QAM RF: 0 saw palmetto 500 mg Capsule 1,200 mg PO QAM RF: 0 vit C-vit [id number] [Ocuvite] [id number] Capsule 1 cap PO QAM RF: 0 Discontinued hydrochlorothiazide 25 mg Tablet 12.5 mg PO DAILY RF: 0 metoprolol tartrate 50 mg Tablet 25 mg PO BID RF: 0 Visit Report Forms: [facility] Stand-Alone Forms: [facility] Discharge Orders: Discharge Order (Routine); Ordered 04/22/18 Ordered By: Avani Solares Admission Data Admit Date/Time: 04/15/18 13:51 Attending Provider: Avani Solares Admit Provider: Inocente Prater Primary Care Provider: Chevy Bhatti Other Providers: Inocente Prater ; Max Mayes ; Javon Quesada ; Leoncio Abbott ; Contreras Shah ; Orlin Vale ; Narinder Nash ; Oma Hernandez ; Lizbeth Johnson ; César Chairez ; Abdulaziz Lockett ; Gemini Parra ; Jase Leonardo ; Su Pathak ; Bronwyn Alvarado ; Adele Montgomery ; Austin Moore ; Froilan Fung ; Halle Cool ; Skyla Allen ; Lola Adams ; Addis Rob ; Stacey Rodrigues Service: Telemetry Medical Other Interventions: Discharge Summary Assessment (RN) Last Done: 04/22/18 13:33 DC Date/Time DO NOT enter until pt leaves facility: 04/22/18 14:16
== END 2018-04-22 14:16 | disposition home or self-care (01) | DRG 392 ==
LOC: ED 11:18 → SUATTDRO 13:51 → 2N 13:51
DX: Z72.89 Other problems related to lifestyle; I44.7 Left bundle-branch block, unspecified; E83.42 Hypomagnesemia; E87.1 Hypo-osmolality and hyponatremia; I10 Essential (primary) hypertension; I48.0 Paroxysmal atrial fibrillation; K57.30 Diverticulosis of large intestine without perforation or abscess without bleeding; Z79.899 Other long term (current) drug therapy; K52.9 Noninfective gastroenteritis and colitis, unspecified; E87.6 Hypokalemia